=== PATIENT | female | born 1940 | race Caucasian/White ===

== ENCOUNTER 2019-10-18 14:44 | Outpatient (CLI) | payer OTHER, SELFPAY ==
--- NOTE | 2019-10-18 15:00 | CT_ITS ---
WS: [id number] CT CERVICAL SPINE TECHNIQUE: Noncontrast CT of the cervical spine with coronal and sagittal reformatted images. CLINICAL INFORMATION: Cervical spine pain COMPARISON: None. DLP: 557.[address] scans at [facility] use at least one of these dose optimization techniques: automat ed exposure control; mA and/or kV adjustment per patient size (includes targeted exams where dose is matched to clinical indication); or iterative reconstruction. FINDINGS: Straightening of the normal cervical lordosis with moderate spondylitic changes. Disc space narrowing worse at C5-C6 and C6-C7 with osteophytic ridging. Normal prevertebral soft tissues. Normal C1-2 art iculation. C2-C3: Normal. C3-C4: Disc osteophyte complex with endplate ridging. Moderate to severe right and mild left bony for aminal narrowing. Advanced right facet arthropathy. C4-C5: Disc osteophyte complex with endplate ridging. Moderate to severe right and moderate left bony foraminal narrowing. Mild Central canal stenosis. Advanced left facet arthropathy. C5-C6: Disc osteophyte complex with endplate ridging. Severe right and moderate left bony foraminal n arrowing. Mild central canal stenosis. Moderate facet arthropathy. C6-C7: Disc osteophyte complex eccentric to the right with severe right foraminal narrowing. Moderate left bony foraminal narrowing. Spinal canal is patent. C7-T1: No significant disc bulging. Spinal canal and foramen are patent. Visualized posterior nasopharynx: Normal. Prevertebral soft tissues: Normal. CT/CT cervical spin wo con* [id number] IMPRESSION: 1. Straightening of the normal cervical lordosis with moderate spondylitic yu nges. 2. Mild central canal stenosis C5-C6 and C6-C7 due to disc osteophyte complexe s. 3. Multilevel moderate to severe bony foraminal narrowing worse at right C3-C4 , bilateral C4-C5, right C5-C6, and right C6-C7.
--- NOTE | 2019-10-18 15:30 | XR_ITS ---
WS: [id number] XR cervical spine fl/ex [id number] REASON FOR EXAM: Cervical spine pain FINDINGS: There is degenerate changes of the C5 and C6 joint space and vertebral body. There is normal flexion-extension changes noted. XR/XR cervical spine fl/ex [id number] IMPRESSION: Normal flexion-extension. Degenerate changes C5-C6.
== END 2019-10-18 14:45 | disposition home or self-care (01) ==
PROVIDERS: Family Provider Nurse Practitioner Family; PCP Family Medicine; Visit Provider Licensed Practical Nurse
DX: M50.020 Cervical disc disorder with myelopathy, mid-cervical region, unspecified level (principal); M47.892 Other spondylosis, cervical region; M48.02 Spinal stenosis, cervical region
CPT/HCPCS: 72040; 72125

== ENCOUNTER → 2020-12-22 10:03 | Outpatient (BNVA) | payer MEDICARE, MEDICAID, SELFPAY | PROVIDERS: Family Provider Nurse Practitioner Family; PCP Family Medicine; Referring Provider Dermatology; Visit Provider Podiatrist Foot & Ankle Surgery | DX: M84.475A Pathological fracture, left foot, initial encounter for fracture (principal); M20.12 Hallux valgus (acquired), left foot; M19.072 Primary osteoarthritis, left ankle and foot; M79.672 Pain in left foot | CPT/HCPCS: 73630; 87070; 87075; 87077; 87186; 87205 ==

== ENCOUNTER → 2021-03-26 09:30 | Outpatient (BNVA) | payer MEDICARE, MEDICAID, SELFPAY | PROVIDERS: Family Provider Nurse Practitioner Family; PCP Family Medicine; Visit Provider Podiatrist Foot & Ankle Surgery | DX: S91.302A Unspecified open wound, left foot, initial encounter (principal); L97.522 Non-pressure chronic ulcer of other part of left foot with fat layer exposed; X58.XXXA Exposure to other specified factors, initial encounter; Z46.89 Encounter for fitting and adjustment of other specified devices | CPT/HCPCS: 73630; 97760; L4361 ==

== ENCOUNTER 2021-03-26 14:06 | Outpatient (CLI) | payer MEDICARE, MEDICAID, SELFPAY | END 2021-03-26 14:07 | disposition home or self-care (01) | LOC: SPT 14:07 | PROVIDERS: Family Provider Nurse Practitioner Family; PCP Family Medicine; Visit Provider Podiatrist Foot & Ankle Surgery | DX: Z46.89 Encounter for fitting and adjustment of other specified devices (principal); L97.522 Non-pressure chronic ulcer of other part of left foot with fat layer exposed | CPT/HCPCS: 97760; L4361 ==

== ENCOUNTER → 2021-04-03 13:29 | Outpatient (BNVA) | payer MEDICARE, MEDICAID, SELFPAY | PROVIDERS: Family Provider Nurse Practitioner Family; PCP Family Medicine; Visit Provider Podiatrist Foot & Ankle Surgery | DX: M79.672 Pain in left foot (principal) | CPT/HCPCS: 73630 ==

== ENCOUNTER → 2021-06-01 09:26 | Outpatient (BNVA) | payer MEDICARE, MEDICAID, SELFPAY | PROVIDERS: Family Provider Nurse Practitioner Family; PCP Family Medicine; Visit Provider Podiatrist Foot & Ankle Surgery | DX: Z01.818 Encounter for other preprocedural examination (principal); E11.42 Type 2 diabetes mellitus with diabetic polyneuropathy; L97.522 Non-pressure chronic ulcer of other part of left foot with fat layer exposed; T84.84XA Pain due to internal orthopedic prosthetic devices, implants and grafts, initial encounter; M20.22 Hallux rigidus, left foot; Z79.4 Long term (current) use of insulin | CPT/HCPCS: 87635 ==

== ENCOUNTER 2021-06-05 07:03 | Day surgery (SDC) | payer MEDICARE, MEDICAID, SELFPAY ==
[2021-06-04 09:09] VITALS: BMI 34.4
[2021-06-05] VITALS (8 sets, daily range): BP systolic 114–163; BP diastolic 61–87; PULSE 75–81; RESP 13–20; TEMP 36.5–36.8; O2SAT 90–96
[2021-06-05 07:41] LABS: Glucose Point of Care 240 mg/dL (70-110)
[2021-06-05] MEDS: sodium chloride 0.9% 1,000 ML 30 ML IV (07:47)
[2021-06-05] MEDS: insulin regular-human 100 units/1 mL 10 UNIT IVP (08:09)
--- NOTE | 2021-06-05 08:13 | SUR.PREOP ---
patient blood sugar 240. Dr. wheat informed and orders for 10 regular insulin and recheck blood sugar in an hour if still in outpatient.
--- NOTE | 2021-06-05 08:28 | W.PM.OPSUD ---
Surgery/Procedure H&P Update DATE OF PROCEDURE: June 05, 2021 DATE H&P PERFORMED: 06/01/21 H&P UPDATE INFORMATION: I have reviewed H&P completed within last 30 days, I have examined patient prior to procedure, No changes to prior documentation and H&P is in [facility] EMR on date indicated PREOP DIAGNOSIS: Painful hardware and chronic ulcer left foot PLANNED PROCEDURE: Operation Date: 06/05/21 08:50 Proposed Procedures p 80793 and [id number] Osteotomy proximal phalanx and deep hardware removal of left great toe L97.522 T84.84X(Left) - Luis Lucero DPM s Hardware Removal(Left) - Luis Lucero DPM
--- NOTE | 2021-06-05 08:35 | ANES.PREANE2 ---
Pre-Anesthetic Assessment Pre-Anesthetic Assessment: Height/Weight: Height 1.65 m Weight 93.894 kg Temp Pulse Resp BP Pulse Ox 97.8 F 81 18 163/87 93 06/05/21 07:34 06/05/21 07:34 06/05/21 07:34 06/05/21 07:34 06/05/21 07:34 Preop Diagnosis: Painful hardware and chronic ulcer left foot Proposed Procedure: Operation Date: 06/05/21 08:50 Proposed Procedures p 72120 and 00268 Osteotomy proximal phalanx and deep hardware removal of left great toe L97.522 T84.84X(Left) - Luis Lucero DPM s Hardware Removal(Left) - Luis Lucero DPM Was Beta Aleah taken within 24 hours: Yes Was Clonidine taken within 24 hours: N/A Last intake: Intake Last Liquid Date 06/04/21 Last Liquid Time 23:00 Last Solid Date 06/04/21 Last Solid Time 23:00 Social: Social History: No alcohol and No tobacco Exam: Pre-Anes Outpt Exam: alert, oriented x 3, clear to auscultation bilaterally and regular rate & rhythm Airway: Submandibular: WNL Cervical ROM: WNL MP: 2 Dentition: Full CV/HEM: CV/HEM: HTN GI: GI: GERD Metabolic: Metabolic: Hyperlipidemia and Morbid obesity Musc/skel: Musc/skel: Lower Back Pain and OA/DJD Anesthetic Plan: ASA status: 3 Risk of > 500 ml blood loss (7ml/kg in children): No Meds/Allergies Current Medications: Current Medications Generic Name Dose Route Start Last Admin Trade Name Freq PRN Reason Stop Dose Admin Sodium Chloride 1,000 mls @ 30 ml s/hr 06/05/21 07:30 06/05/21 07:47 Sodium Chloride 0.9% IV 06/06/21 07:29 30 mls/hr .Q24H VIKKI Administration PFSH Anesthesia PFSH: Medical History 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 Type 2 diabetes mellitus Surgical History History of cholecystectomy (~1960) removal of appendix and gall bladder History of foot surgery 1989 History of hysterectomy (1973) Family History Mother Hypertension Brother Hypertension Heart disease Cancer Grandmother Cancer Social History Alcohol intake: never Lives independently: No Housing: Assisted Living Facility Marital status: service: Yes branch: [employer] Current occupational status: retired and disabled History of recent travel: No Data Anesthesia Other Labs: Laboratory Results - last 48 hr 06/05/21 07:37 POC Glucose 240 H Cardiac Studies: No Data to Display
--- NOTE | 2021-06-05 09:38 | XR_ITS ---
WS: [id number] XR foot LT min 3V* [id number] REASON FOR EXAM: post op FINDINGS: Compared to the previous examination of 04/03/2021, the arthrodesis DIP joint screw in the great toe is been removed. There is fusion of the distal and proximal phalanx. Interval amputation of the phalanges of the fourth and fifth toes. Significant subluxation at the MP joint of the third toe. 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 The hindfoot and midfoot are unchanged. XR/XR foot LT min 3V* [id number] IMPRESSION: Postoperative left foot.
--- NOTE | 2021-06-05 09:45 | P.OP_ITS ---
Operative Report Date of procedure: June 05, 2021 Pre-op Diagnosis: Painful hardware and chronic ulcer left foot Post-op diagnosis: same Post-op Findings: None Procedure Done: Osteotomy proximal phalanx and deep hardware removal of left great toe. CPT 17249 and 25255 Implants: 4-0 Vicryl 4-0 nylon Specimens removed/disposition: Screw removed from left great toe Pathology: none sent Surgeon: Luis Lucero D.P.M. Branch Administrator: Phyllis Anesthesia: MAC Estimated blood loss: 5 Tourniquet time: See operative documentation IV fluids: 0 Urine output: 0 Complications: None Findings: None Condition: stable Disposition: PACU Brief History: Ulceration to the left plantar medial hallux at the interphalangeal joint. Patient initially requesting amputation, I proposed hard lion removal and arthroplasty/osteotomy of the first toe of proximal phalanx as a means of offloading patient is agreeable would like to proceed with this understanding that should result in infection or fail and offloading that down the road her toe could potentially be amputated. She is okay with this. Risks include pain, bleeding, numbness, infection, failure to remove hardware, osteomyelitis, need for further surgical intervention. Transfer pressure, transfer lesion and possible risk for amputation. Patient is agreeable wishes to proceed. Covid screening negative. Has been n.p.o. since midnight. Informed consent signed and I initialed her left foot. No guarantees written, expressed or implied. Procedure: Under mild sedation the patient was brought to the operating room and remained on the gurney in supine position. A timeout was performed. Anesthesia was then administered by the anesthesia service. Local anesthesia injected by myself total of 20 cc of one-to-one mixture 1% lidocaine 0.5% Marcaine plain left in a Prince block fashion. Well-padded pneumatic tourniquet applied to the left ankle. Left lower extremity was scrubbed, prepped and draped utilizing normal aseptic technique. Left foot was elevated and tourniquet inflated to 250 mmHg. Incision was made transversely at the distal tuft of the left hallux and screw head was identified this was backed out and removed and passed from the operative field. Incision was flushed with saline solution at the distal hallux and closed with 4-0 nylon. Linear incision at the dorsal aspect of the left hallux was performed with dissection carried down to the level of the hallux interphalangeal joint where a transverse osteotomy was performed at the proximal phalanx head this was excised and passed in the operative field and flushed with saline solution closed in a layered fashion with deep structures closed with 4-0 Vicryl and skin closed with 4-0 nylon. Incision was then dressed with Adaptic, sterile 4 x 4, Kerlix, Prakash wrap and a postop shoe was applied. Tourniquet was deflated and a prompt hyperemic response was noted to the distal digits of the left foot. Patient tolerated the procedure well and was transferred to the PACU with vital signs stable and vascular status intact. Following a period of postoperative monitoring she will be discharged home. Has follow-up scheduled in podiatry clinic next week.
[2021-06-05 10:05] LABS: Glucose Point of Care 172 mg/dL (70-110)
--- NOTE | 2021-06-05 13:17 | ANE.PACU2 ---
Inpatient post-anesthesia follow up: Airway intact: Yes Vital signs: Temperature 97.7 F Pulse Rate 76 Respiratory Rate 18 Blood Pressure 135/75 Pulse Oximetry 95 Oxygen Delivery Me thod Room Air Oxygen Flow Rate Fraction of Inspir ed Oxygen Hydration adequate: Yes Nausea and vomiting: No Pain level: 2 Mental status: Baseline
== END 2021-06-05 13:10 | disposition home or self-care (01) ==
PROVIDERS: PCP Family Medicine; Visit Provider Podiatrist Foot & Ankle Surgery
PROC: (CPT 28308; principal; 2021-06-05 08:45)
PROC: (CPT 20680; 2021-06-05 08:45)
DX: T84.84XA Pain due to internal orthopedic prosthetic devices, implants and grafts, initial encounter (principal); L97.522 Non-pressure chronic ulcer of other part of left foot with fat layer exposed; E11.621 Type 2 diabetes mellitus with foot ulcer; I10 Essential (primary) hypertension; K21.9 Gastro-esophageal reflux disease without esophagitis; E78.5 Hyperlipidemia, unspecified; E66.01 Morbid (severe) obesity due to excess calories; Z68.34 Body mass index [BMI] 34.0-34.9, adult; Z82.49 Family history of ischemic heart disease and other diseases of the circulatory system; Z83.3 Family history of diabetes mellitus
CPT/HCPCS: 20680; 28310; 36416; 73630; 82962; 96374; J0690; J1815; J2704; J3010; J3490; J7030

== ENCOUNTER → 2021-06-24 13:55 | Outpatient (BNVA) | payer MEDICARE, MEDICAID, SELFPAY | PROVIDERS: PCP Family Medicine; Referring Provider Nurse Practitioner Family; Visit Provider Internal Medicine | DX: E11.40 Type 2 diabetes mellitus with diabetic neuropathy, unspecified (principal); E11.649 Type 2 diabetes mellitus with hypoglycemia without coma; Z79.4 Long term (current) use of insulin | CPT/HCPCS: 99204 ==

== ENCOUNTER → 2021-07-20 09:18 | Outpatient (BNVA) | payer MEDICARE, MEDICAID, SELFPAY | PROVIDERS: PCP Family Medicine; Visit Provider Podiatrist Foot & Ankle Surgery | DX: Z98.890 Other specified postprocedural states (principal) | CPT/HCPCS: 73630 ==

== ENCOUNTER → 2021-07-28 11:21 | Outpatient (BNVA) | payer MEDICARE, MEDICAID, SELFPAY | PROVIDERS: PCP Family Medicine; Visit Provider Internal Medicine | DX: E11.40 Type 2 diabetes mellitus with diabetic neuropathy, unspecified (principal); E11.649 Type 2 diabetes mellitus with hypoglycemia without coma; Z79.4 Long term (current) use of insulin | CPT/HCPCS: 99214 ==

== ENCOUNTER → 2021-10-28 10:39 | Outpatient (BNVA) | payer MEDICARE, MEDICAID, SELFPAY | PROVIDERS: PCP Family Medicine; Visit Provider Internal Medicine | DX: E11.40 Type 2 diabetes mellitus with diabetic neuropathy, unspecified (principal); E11.649 Type 2 diabetes mellitus with hypoglycemia without coma | CPT/HCPCS: 99214 ==

== ENCOUNTER → 2021-12-14 13:07 | Outpatient (BNVA) | payer MEDICARE, MEDICAID, SELFPAY | PROVIDERS: PCP Family Medicine; Visit Provider Podiatrist Foot & Ankle Surgery | DX: E11.42 Type 2 diabetes mellitus with diabetic polyneuropathy (principal); M72.2 Plantar fascial fibromatosis; I73.9 Peripheral vascular disease, unspecified | CPT/HCPCS: 99213 ==

== ENCOUNTER → 2022-02-18 13:22 | Outpatient (BNVA) | payer MEDICARE, MEDICAID, SELFPAY | PROVIDERS: PCP Family Medicine; Visit Provider Internal Medicine | DX: E11.40 Type 2 diabetes mellitus with diabetic neuropathy, unspecified (principal); E11.69 Type 2 diabetes mellitus with other specified complication; R68.89 Other general symptoms and signs; E78.2 Mixed hyperlipidemia; Z79.4 Long term (current) use of insulin; Z79.84 Long term (current) use of oral hypoglycemic drugs | CPT/HCPCS: 99214 ==

== ENCOUNTER → 2022-05-31 08:14 | Outpatient (BNVA) | payer MEDICARE, MEDICAID, SELFPAY | PROVIDERS: PCP Family Medicine; Visit Provider Internal Medicine | DX: E11.40 Type 2 diabetes mellitus with diabetic neuropathy, unspecified (principal); E11.69 Type 2 diabetes mellitus with other specified complication; R68.89 Other general symptoms and signs; E78.2 Mixed hyperlipidemia; Z87.891 Personal history of nicotine dependence; Z79.84 Long term (current) use of oral hypoglycemic drugs; Z79.4 Long term (current) use of insulin | CPT/HCPCS: 99214 ==

== ENCOUNTER → 2022-06-08 09:15 | Outpatient (BNVA) | payer OTHER, SELFPAY | PROVIDERS: PCP Family Medicine; Visit Provider Podiatrist Foot & Ankle Surgery | DX: E11.8 Type 2 diabetes mellitus with unspecified complications (principal); E11.40 Type 2 diabetes mellitus with diabetic neuropathy, unspecified; R68.89 Other general symptoms and signs; E11.69 Type 2 diabetes mellitus with other specified complication; E78.2 Mixed hyperlipidemia; Z79.4 Long term (current) use of insulin | CPT/HCPCS: 99214 ==

== ENCOUNTER → 2022-11-30 10:30 | Outpatient (BNVA) | payer MEDICARE, MEDICAID, SELFPAY | PROVIDERS: PCP Family Medicine; Visit Provider Internal Medicine | DX: E11.40 Type 2 diabetes mellitus with diabetic neuropathy, unspecified (principal); E11.69 Type 2 diabetes mellitus with other specified complication; R68.89 Other general symptoms and signs; E78.2 Mixed hyperlipidemia; Z79.4 Long term (current) use of insulin; Z79.84 Long term (current) use of oral hypoglycemic drugs | CPT/HCPCS: 99214 ==

== ENCOUNTER → 2022-12-07 09:06 | Outpatient (BNVA) | payer MEDICARE, MEDICAID, SELFPAY | PROVIDERS: PCP Family Medicine; Visit Provider Podiatrist Foot & Ankle Surgery | DX: E11.621 Type 2 diabetes mellitus with foot ulcer (principal); Z79.4 Long term (current) use of insulin; L97.521 Non-pressure chronic ulcer of other part of left foot limited to breakdown of skin; E11.40 Type 2 diabetes mellitus with diabetic neuropathy, unspecified; R68.89 Other general symptoms and signs; E11.69 Type 2 diabetes mellitus with other specified complication; E78.2 Mixed hyperlipidemia; I73.9 Peripheral vascular disease, unspecified | CPT/HCPCS: 99214 ==

== ENCOUNTER → 2023-03-03 13:04 | Outpatient (BNVA) | payer MEDICARE, MEDICAID, SELFPAY | PROVIDERS: PCP Family Medicine; Visit Provider Podiatrist Foot & Ankle Surgery | DX: E11.621 Type 2 diabetes mellitus with foot ulcer (principal); L97.521 Non-pressure chronic ulcer of other part of left foot limited to breakdown of skin; I73.9 Peripheral vascular disease, unspecified; E78.2 Mixed hyperlipidemia; E11.69 Type 2 diabetes mellitus with other specified complication; R68.89 Other general symptoms and signs; E11.40 Type 2 diabetes mellitus with diabetic neuropathy, unspecified; Z79.4 Long term (current) use of insulin | CPT/HCPCS: 99213 ==

== ENCOUNTER → 2023-03-18 10:45 | Outpatient (BNVA) | payer MEDICARE, MEDICAID, SELFPAY | PROVIDERS: PCP Family Medicine; Visit Provider Podiatrist Foot & Ankle Surgery | DX: E11.621 Type 2 diabetes mellitus with foot ulcer (principal); L97.521 Non-pressure chronic ulcer of other part of left foot limited to breakdown of skin; E11.40 Type 2 diabetes mellitus with diabetic neuropathy, unspecified; R68.89 Other general symptoms and signs; E11.69 Type 2 diabetes mellitus with other specified complication; E78.2 Mixed hyperlipidemia; I73.9 Peripheral vascular disease, unspecified; Z79.4 Long term (current) use of insulin | CPT/HCPCS: 73630; 99213 ==

== ENCOUNTER → 2023-04-27 15:51 | Outpatient (BNVA) | payer MEDICARE, MEDICAID, SELFPAY | PROVIDERS: PCP Family Medicine; Visit Provider Nurse Practitioner Family | DX: L97.521 Non-pressure chronic ulcer of other part of left foot limited to breakdown of skin (principal); Z51.89 Encounter for other specified aftercare | CPT/HCPCS: 87070; 87077; 87186 ==

== ENCOUNTER → 2023-05-31 11:12 | Outpatient (BNVA) | payer MEDICARE, MEDICAID, SELFPAY | PROVIDERS: PCP Family Medicine; Visit Provider Internal Medicine | DX: E11.40 Type 2 diabetes mellitus with diabetic neuropathy, unspecified (principal); R68.89 Other general symptoms and signs; E11.69 Type 2 diabetes mellitus with other specified complication; E78.2 Mixed hyperlipidemia; Z79.84 Long term (current) use of oral hypoglycemic drugs | CPT/HCPCS: 99214 ==

== ENCOUNTER → 2023-06-07 10:50 | Outpatient (BNVA) | payer MEDICARE, MEDICAID, SELFPAY | PROVIDERS: Visit Provider Podiatrist Foot & Ankle Surgery | DX: E11.40 Type 2 diabetes mellitus with diabetic neuropathy, unspecified (principal); E11.69 Type 2 diabetes mellitus with other specified complication; I73.9 Peripheral vascular disease, unspecified; M20.41 Other hammer toe(s) (acquired), right foot; M20.42 Other hammer toe(s) (acquired), left foot; M21.41 Flat foot [pes planus] (acquired), right foot; M21.42 Flat foot [pes planus] (acquired), left foot; M21.611 Bunion of right foot; M21.612 Bunion of left foot; Z79.4 Long term (current) use of insulin; Z79.84 Long term (current) use of oral hypoglycemic drugs | CPT/HCPCS: 99213 ==

== ENCOUNTER → 2023-10-04 09:55 | Outpatient (BNVA) | payer OTHER, SELFPAY | PROVIDERS: Visit Provider Podiatrist Foot & Ankle Surgery | DX: E11.8 Type 2 diabetes mellitus with unspecified complications (principal); E11.40 Type 2 diabetes mellitus with diabetic neuropathy, unspecified; I73.9 Peripheral vascular disease, unspecified; M20.41 Other hammer toe(s) (acquired), right foot; M20.42 Other hammer toe(s) (acquired), left foot; M21.41 Flat foot [pes planus] (acquired), right foot; M21.42 Flat foot [pes planus] (acquired), left foot; M21.611 Bunion of right foot; M21.612 Bunion of left foot; Z79.85 Long-term (current) use of injectable non-insulin antidiabetic drugs; Z79.84 Long term (current) use of oral hypoglycemic drugs | CPT/HCPCS: 99213 ==

== ENCOUNTER → 2023-11-30 09:51 | Outpatient (BNVA) | payer MEDICARE, MEDICAID, OTHER, SELFPAY | PROVIDERS: Visit Provider Internal Medicine | DX: E11.40 Type 2 diabetes mellitus with diabetic neuropathy, unspecified (principal); R68.89 Other general symptoms and signs; E11.69 Type 2 diabetes mellitus with other specified complication; E78.2 Mixed hyperlipidemia; Z79.4 Long term (current) use of insulin; Z79.84 Long term (current) use of oral hypoglycemic drugs | CPT/HCPCS: 99214 ==

== ENCOUNTER → 2024-01-10 12:52 | Outpatient (BNVA) | payer MEDICARE, MEDICAID, SELFPAY | PROVIDERS: Visit Provider Podiatrist Foot & Ankle Surgery | DX: E11.8 Type 2 diabetes mellitus with unspecified complications (principal); E11.40 Type 2 diabetes mellitus with diabetic neuropathy, unspecified; I73.9 Peripheral vascular disease, unspecified; M20.41 Other hammer toe(s) (acquired), right foot; M20.42 Other hammer toe(s) (acquired), left foot; M21.41 Flat foot [pes planus] (acquired), right foot; M21.42 Flat foot [pes planus] (acquired), left foot; M21.611 Bunion of right foot; M21.612 Bunion of left foot; Z79.4 Long term (current) use of insulin; Z79.84 Long term (current) use of oral hypoglycemic drugs | CPT/HCPCS: 99213 ==

== ENCOUNTER → 2024-04-10 10:17 | Outpatient (BNVA) | payer MEDICARE, MEDICAID, SELFPAY | PROVIDERS: PCP Nurse Practitioner; Referring Provider Family Medicine; Visit Provider Podiatrist Foot & Ankle Surgery | DX: E11.8 Type 2 diabetes mellitus with unspecified complications (principal); E11.40 Type 2 diabetes mellitus with diabetic neuropathy, unspecified; I73.9 Peripheral vascular disease, unspecified; M20.41 Other hammer toe(s) (acquired), right foot; M20.42 Other hammer toe(s) (acquired), left foot; M21.41 Flat foot [pes planus] (acquired), right foot; M21.42 Flat foot [pes planus] (acquired), left foot; Z79.84 Long term (current) use of oral hypoglycemic drugs | CPT/HCPCS: 99213 ==

== ENCOUNTER → 2024-05-30 09:57 | Outpatient (BNVA) | payer OTHER, SELFPAY | PROVIDERS: PCP Nurse Practitioner; Visit Provider Internal Medicine | DX: E11.40 Type 2 diabetes mellitus with diabetic neuropathy, unspecified (principal); R68.89 Other general symptoms and signs; E11.69 Type 2 diabetes mellitus with other specified complication; E78.2 Mixed hyperlipidemia; Z79.4 Long term (current) use of insulin; Z79.84 Long term (current) use of oral hypoglycemic drugs | CPT/HCPCS: 99214 ==

== ENCOUNTER → 2024-06-19 13:00 | Outpatient (BNVA) | payer OTHER, SELFPAY | PROVIDERS: PCP Nurse Practitioner; Visit Provider Podiatrist Foot & Ankle Surgery | DX: E11.40 Type 2 diabetes mellitus with diabetic neuropathy, unspecified; I73.9 Peripheral vascular disease, unspecified; L84 Corns and callosities; L97.522 Non-pressure chronic ulcer of other part of left foot with fat layer exposed; E11.621 Type 2 diabetes mellitus with foot ulcer; Z79.4 Long term (current) use of insulin; Z79.84 Long term (current) use of oral hypoglycemic drugs | CPT/HCPCS: 11042; 11055; 87070; 87075; 87077; 87186; 87205 ==

== ENCOUNTER → 2024-07-10 08:45 | Outpatient (BNVA) | payer OTHER, SELFPAY | PROVIDERS: PCP Nurse Practitioner; Visit Provider Podiatrist Foot & Ankle Surgery | DX: E11.40 Type 2 diabetes mellitus with diabetic neuropathy, unspecified (principal); I73.9 Peripheral vascular disease, unspecified; L84 Corns and callosities; L97.522 Non-pressure chronic ulcer of other part of left foot with fat layer exposed; E11.621 Type 2 diabetes mellitus with foot ulcer; Z79.84 Long term (current) use of oral hypoglycemic drugs; Z79.4 Long term (current) use of insulin | CPT/HCPCS: 11042 ==

== ENCOUNTER 2024-07-16 19:54 | Emergency (ER) | payer OTHER, MEDICARE, MEDICAID, SELFPAY ==
[2024-07-16] VITALS (7 sets, daily range): BP systolic 170–182; BP diastolic 78–101; PULSE 78–95; RESP 16–18; TEMP 36.7; O2SAT 90–96; BMI 33.3
--- NOTE | 2024-07-16 20:01 | CTR_ITS ---
PROCEDURE INFORMATION: Exam: CT Head Without Contrast Exam date and time: 07/16/2024 8:48 PM Age: 83 years old Clinical indication: Altered mental status/memory loss; Additional info: Encephalopathy, altered mental status TECHNIQUE: Imaging protocol: Computed tomography of the head without contrast. Radiation optimization: All CT scans at this facility use at least one of these dose optimization techniques: automated exposure control; mA and/or kV adjustment per patient size (includes targeted exams where dose is matched to clinical indication); or iterative reconstruction. COMPARISON: CT cervical spin wo con* [id number] 10/18/2019 3:48 PM RADIATION DOSE METRICS: Total DLP (mGy-cm): 1108.28 FINDINGS: Brain: Age-related brain parenchymal atrophy. Areas of hypoattenuation in the periventricular and subcortical deep white matter likely on the basis of chronic microvascular ischemic changes. No acute intra cranial hemorrhage. No mass effect or midline shift. No definitive CT evidence of acute territorial infarction. Cerebral ventricles: Prominence of the lateral ventricular system likely on the basis of ex vacuo dilatation. Paranasal sinuses: Visualized sinuses are unremarkable. No fluid levels. Mastoid air cells: Visualized mastoid air cells are well aerated. Bones: Intact calvarium. . Soft tissues: Unremarkable. CT/CT head wo con* [id number] IMPRESSION: No acute intracranial process.
--- NOTE | 2024-07-16 20:02 | XRR_ITS ---
PROCEDURE INFORMATION: Exam: XR Chest Exam date and time: 07/16/2024 8:26 PM Age: 83 years old Clinical indication: Other: [place], AMS; Additional info: Weakness TECHNIQUE: Imaging protocol: Radiologic exam of the chest. Views: 1 view. COMPARISON: CT cervical spin wo con* [id number] 10/18/2019 3:48 PM FINDINGS: Lungs: Unremarkable. No consolidation. Pleural spaces: Unremarkable. No pleural effusion. No pneumothorax. Heart/Mediastinum: Unremarkable. No cardiomegaly. Bones/joints: Unremarkable. XR/XR chest 1V portable [id number] IMPRESSION: No acute findings.
[2024-07-16 20:27] LABS: Basophils # 0.2 10^3/uL (0.0-0.1); Basophils % 1.5 %; Eosinophils # 0.4 10^3/uL (0.0-0.8); Eosinophils % 4.3 %; Hematocrit 38.1 % (36-47); Lymphocytes # 2.3 10^3/uL (0.8-4.8); Lymphocytes % 22.7 %; Mean Corpuscular HGB Conc 30.7 g/dL (30-55); Mean Corpuscular Hemoglobin 27.5 pg (27-33); Mean Corpuscular Volume 89.6 fl (85-98); Mean Platelet Volume 10.5 fL (7.4-10.4); Monocytes # 0.7 10^3/uL (0.2-0.9); Monocytes % 6.5 %; Neutrophils # 6.65 10^3/uL (1.8-7.7); Neutrophils % 64.6 %; Nucleated Red Blood Cells % 0 %; Platelet Count 477 10^3/cmm (157-399); Red Blood Count 4.25 10^6/uL (3.85-5.65); Red Cell Distribution Width 13.6 % (12.1-15.1); White Blood Count 10.29 10^3/uL (3.29-11.43)
[2024-07-16 20:44] LABS: Troponin(5th) Baseline 21 ng/L (0-10)
[2024-07-16 20:45] LABS: Alanine Aminotransferase 9 U/L (0-33); Albumin Level 4.1 g/dL (3.5-5.2); Alkaline Phosphatase 53 U/L (35-105); Anion Gap 15.2 (5-19); Aspartate Amino Transferase 14 U/L (0-32); Blood Urea Nitrogen 34 mg/dL (8-23); Calcium 9.5 mg/dL (8.5-10.5); Carbon Dioxide 28 mmol/L (22-29); Chloride 100 mmol/L (98-107); Creatinine Clr Calc Pharmacy 35.2059; Globulin 2.6 g/dL (1.3-4.6); Glucose 191 mg/dL (65-115); Osmolality Calculated 299 mOsm/kg (285-295); Potassium 5.2 mmol/L (3.5-5.1); Sodium 138 mmol/L (136-145); Total Bilirubin 0.2 mg/dL (0.15-1.2); Total Protein 6.7 g/dL (6.6-8.7)
[2024-07-16 20:46] LABS: Lactic Sepsis W/Reflex 0.7 mmol/L (0.5-2.2)
[2024-07-16 20:47] LABS: Bilirubin Urine Negative (Negative); Blood Urine Negative (Negative); Glucose Urine UA Negative (Normal); Ketones Urine Negative (Negative); Leukocyte Esterase Urine Negative (Negative); Nitrate Urine Negative (Negative); Protein Urine 1+ (Negative); Specific Gravity, Urine 1.009 (1.005-1.030); Urine Appearance Clear (CLEAR); Urine Color Yellow (Yellow); Urobilinogen Urine 0.2 mg/dL (Negative)
[2024-07-16 20:51] LABS: Bacteria Urine None Seen /hpf; RBC Urine 0-2 /hpf (0-2); Squamous Epithelial Cell Urine 0-5 /hpf (0-5); WBC Urine 0-5 /hpf (0-5)
--- NOTE | 2024-07-16 20:54 | ED_ITS ---
HPI - Headache 2 General: Chief Complaint: Headache Stated Complaint: AMS Time Seen by Provider: 07/16/24 20:01 History of Present Illness: 83-year-old who presents to the emergenc y room by ambulance from [facility] with headache and tripping over her feet recently. She is low bit hypertensive on presentation. No focal motor deficits. No altered mental status. No chest pain. No nausea or vomiting. No fevers Related Data Home Medications Medication Instructions Recorded Confirmed amlodipine 10 mg tablet 10 mg PO QNOON 10/05/19 07/10/24 carvedilol 25 mg tablet 25 mg PO DAILY 10/05/19 07/10/24 cholecalciferol (vitamin D3) 50 2,000 unit PO QPM 10/05/19 07/10/24 mcg (2,000 unit) tablet cyanocobalamin (vitamin B-12) 1,000 mcg IM .MONTHLY 10/05/19 07/10/24 1,000 mcg/mL injection solution cyclobenzaprine 10 mg tablet 10 mg PO TID PRN muscle spasm 10/05/19 07/10/24 lidocaine 5 % topical cream 1 applic topical BID PRN Pain 10/05/19 07/10/24 lisinopril 40 mg tablet 20 mg PO DAILY 10/05/19 07/10/24 magnesium oxide 400 mg PO DAILY 10/05/19 07/10/24 multivitamin 1 tab PO QNOON 10/05/19 07/10/24 omeprazole 20 mg capsule,delayed 20 mg PO BID 10/05/19 07/10/24 release peg 400-propylene glycol 0.4 %-0.3 1 drop ophthalmic (eye) BID 10/05/19 07/10/24 % eye drops meloxicam 15 mg tablet (Mobic) 15 mg PO DAILY 06/04/21 07/10/24 vitamin B complex 1 caplet PO DAILY 06/04/21 07/10/24 ezetimibe 10 mg tablet 10 mg PO DAILY 06/24/21 07/10/24 atorvastatin 20 mg tablet 40 mg PO QPM 10/28/21 07/10/24 betamethasone dipropionate 0.05 % 1 applic topical BID PRN 04/20/23 07/10/24 topical cream duloxetine 60 mg capsule,delayed 60 mg PO DAILY 04/20/23 07/10/24 release metformin 500 mg tablet 500 mg PO BID 04/20/23 07/10/24 miconazole nitrate 2 % topical 1 applic topical BID 04/20/23 07/10/24 ointment sitagliptin phosphate 100 mg tablet 100 mg PO DAILY 04/20/23 07/10/24 Previous Rx's Medication Instructions Recorded pen needle, diabetic 32 gauge x #300 ea 10/28/21/32 (BD Serena 2nd Gen Pen Needle) insulin degludec 100 unit/mL (3 61 unit (0.61 mL) SUBCUT BID #105 01/04/22 mL) subcutaneous pen (Tresiba mL FlexTouch U-100 insulin) ketoconazole 2 % shampoo 1 applic topical .2x weekly #120 mL 05/27/22 triamcinolone acetonide 0.1 % 1 applic topical BID #80 grams 05/27/22 topical ointment Diabetic Shoes with 3 pairs of #1 ea 06/08/22 inserts and 2 pairs of ROMAN Hose fenofibrate nanocrystallized 145 145 mg PO DAILY 90 days #90 tabs 12/02/22 mg tablet Modifications with shoe gear to #1 ea 03/21/23 stay away from surgery (Offloading) Compression stockings bilaterally #3 ea 02/23/24 Diabetic Shoes with 3 Pairs of #1 ea 02/23/24 Custom Orthotics Allergies Allergy/AdvReac Type Severity Reaction Status Date / Time acetaminophen [From Percocet] Allergy Unknown Verified 07/16/24 20:14 benztropine [From Cogentin] Allergy had Verified 07/16/24 20:14 reaction with other medication, haldol codeine Allergy Unknown Verified 07/16/24 20:14 hydrocodone [From Vicodin] Allergy Unknown Verified 07/16/24 20:14 hydroxyzine [From Vistaril] Allergy Unknown Verified 07/16/24 20:14 levothyroxine sodium Allergy unknown Verified 07/16/24 20:14 [From Synthroid] montelukast [From Singulair] Allergy Unknown Verified 07/16/24 20:14 olanzapine [From Zyprexa] Allergy Unknown Verified 07/16/24 20:14 oxycodone [From Percocet] Allergy Unknown Verified 07/16/24 20:14 quetiapine [From Seroquel] Allergy Unknown Verified 07/16/24 20:14 risperidone [From Risperdal] Allergy Unknown Verified 07/10/24 09:01 topiramate [From Topamax] Allergy Unknown Verified 07/10/24 09:01 eszopiclone [From Lunesta] AdvReac kept awake Verified 07/10/24 09:01 fluoxetine [From Prozac] AdvReac wasn't Verified 07/10/24 09:01 able to eat, nauseated haloperidol [From Haldol] AdvReac confused, Verified 07/10/24 09:01 pt stated made silly Review of Systems 2 Narrative: Constitutional symptoms: Negative except as documented in HPI. Skin symptoms: Negative except as documented in HPI. Eye symptoms: Negative except as documented in HPI. ENMT symptoms: Negative except as documented in HPI. Respiratory symptoms: Negative except as documented in HPI. Cardiovascular symptoms: Negative except as documented in HPI. Gastrointestinal symptoms: Negative except as documented in HPI. Genitourinary symptoms: Negative except as documented in HPI. Musculoskeletal symptoms: Negative except as documented in HPI. Neurologic symptoms: Negative except as documented in HPI. Psychiatric symptoms: Negative except as documented in HPI. Endocrine symptoms: Negative except as documented in HPI. 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 Surgical History History of cholecystectomy (~1960) removal of appendix and gall bladder History of hysterectomy (1973) History of foot surgery 1989 Family History Mother Hypertension Brother Hypertension Heart disease Cancer Grandmother Cancer Social History Smoking and tobacco/nicotine status: never used tobacco/nicotine Alcohol intake: never Substance/Drug Use: never Lives independently: No Housing: Assisted Living Facility Marital status: service: Yes branch: [employer] Current occupational status: retired and disabled Physical Exam 2 Narrative: EXAM NARRATIVE: General: Alert, no acute distress. Skin: Warm, dry. Head: Normocephalic, atraumatic. Neck: Supple, trachea midline. Eye: Extraocular movements are intact. Ears, nose, mouth and throat: mucosa moist. Cardiovascular: Regular, Normal peripheral perfusion. Respiratory: Lungs are clear to auscultation, respirations are non-labored, breath sounds are equal, Symmetrical chest wall expansion. Gastrointestinal: Soft, Nontender, Non distended Musculoskeletal: Normal ROM, no deformity. Neurological: Alert and oriented, No focal neurological deficit observed. Psychiatric: Cooperative, appropriate mood & affect. Course 2 Vital Signs: Vital signs: Vital Signs Temperature 98.0 F 07/16/24 20:01 Pulse Rate 93 07/16/24 20:01 Respiratory Rate 16 07/16/24 20:01 Blood Pressure 173/100 07/16/24 20:01 Pulse Oximetry 90 07/16/24 20:01 Oxygen Delivery Me thod Room Air 07/16/24 20:01 MDM - Headache Medical Decision Making Medical decision making: Differential diagnosis for patient presenting with generalized weakness including but not limited to and based on the above HPI, review of systems and physical exam: Sepsis. Dehydration. Renal failure. Electrolyte abnormalities. Anemia. Congestive heart failure. Hypotension. Coronary syndrome. Hepatitis. Cirrhosis. Infections such as pneumonia, urinary tract infection, [place] illness, Cellulitis, Viral infections including influenza and Covid-19. Workup: labwork and lab/exam driven imaging ordered to evaluate, rule in and rule out above pathologies. CT head: No acute intracranial process. no intracranial hemorrhage, no evidence of infarct. no evidence of acute fracture.This was reviewed and interpreted by myself the ER physician. Chest x-ray: No acute process. No infiltrate. No pneumothorax. This was reviewed and interpreted by myself the emergency room physician. I also reviewed the radiology report. Lab Review: Laboratory results were reviewed and interpreted by myself the emergency room physician. Mild leukocytosis. No anemia. BUN and creatinine are 34 and 1.3. Have no comparison films. Perhaps she is a bit dehydrated so giving some fluids. No other acute findings. No urinary tract infection. I reviewed the patient's medical record. Reexamination: Patient remained stable. No increased work of breathing. No altered mental status. No focal motor deficits. Assessment and plan: Headache Balance issues Generalized weakness - Discharged home - Discussed findings and plan with patient. Answered any questions. - All laboratory values were reviewed and interpreted personally by myself, the ER physician - All imaging was reviewed and interpreted personally by myself, the ER physician. - Evaluation and treatment of this problem were appropriate in the emergency setting Lab Data 07/16/24 20:16 07/16/24 20:[address] 07/16/24 20:01 IMPRESSION: No acute intracranial process. Chest X-Ray 07/16/24 20:02 IMPRESSION: No acute findings. Laboratory Results WBC 10.29 10^3/uL (3.29-11.43) 07/16/24 20:16 RBC 4.25 10^6/uL (3.85-5.65) 07/16/24 20:16 Hgb 11.70 g/dL (11.27-16.99) 07/16/24 20:16 Hct 38.1 % (36-47) 07/16/24 20:16 MCV 89.6 fl (85-98) 07/16/24 20:16 MCH 27.5 pg (27-33) 07/16/24 20:16 MCHC 30.7 g/dL (30-55) 07/16/24 20:16 RDW 13.6 % (12.1-15.1) 07/16/24 20:16 Plt Count 477 10^3/cmm (157-399) H 07/16/24 20:16 MPV 10.5 fL (7.4-10.4) H 07/16/24 20:16 Neut % (Auto) 64.6 % 07/16/24 20:16 Lymph % (Auto) 22.7 % 07/16/24 20:16 [facility] % (Auto) 6.5 % 07/16/24 20:16 Eos % (Auto) 4.3 % 07/16/24 20:16 Baso % (Auto) 1.5 % 07/16/24 20:16 Neut # (Auto) 6.65 10^3/uL (1.8-7.7) 07/16/24 20:16 Lymph # (Auto) 2.3 10^3/uL (0.8-4.8) 07/16/24 20:16 [facility] [place] # (Auto) 0.7 10^3/uL (0.2-0.9) 07/16/24 20:16 Eos # (Auto) 0.4 10^3/uL (0.0-0.8) 07/16/24 20:16 Baso # (Auto) 0.2 10^3/uL (0.0-0.1) H 07/16/24 20:16 Nucleated RBC % (auto) 0 % 07/16/24 20:16 Nucleated RBCs # 0.0 /100WBC 07/16/24 20:16 Sodium 138 mmol/L (136-145) 07/16/24 20:16 Potassium 5.2 mmol/L (3.5-5.1) H 07/16/24 20:16 Chloride 100 mmol/L (98-107) 07/16/24 20:16 Carbon Dioxide 28 mmol/L (22-29) 07/16/24 20:16 Anion Gap 15.2 (5-19) 07/16/24 20:16 BUN 34 mg/dL (8-23) H 07/16/24 20:16 Creatinine 1.3 mg/dL (0.5-0.9) H 07/16/24 20:16 GFR Calculation Not Reportable 07/16/24 20:16 Glucose 191 mg/dL (65-115) H 07/16/24 20:16 Calculated Osmolality 299 mOsm/kg (285-295) H 07/16/24 20:16 Lactic Acid 0.7 mmol/L (0.5-2.2) 07/16/24 20:16 Calcium 9.5 mg/dL (8.5-10.5) 07/16/24 20:16 Total Bilirubin 0.2 mg/dL (0.15-1.2) 07/16/24 20:16 AST 14 U/L (0-32) 07/16/24 20:16 ALT 9 U/L (0-33) 07/16/24 20:16 Alkaline Phosphatase 53 U/L (35-105) 07/16/24 20:16 Troponin T Baseline 21 ng/L (0-10) H 07/16/24 20:16 Total Protein 6.7 g/dL (6.6-8.7) 07/16/24 20:16 Albumin 4.1 g/dL (3.5-5.2) 07/16/24 20:16 Globulin 2.6 g/dL (1.3-4.6) 07/16/24 20:16 Urine Color Yellow (Yellow) 07/16/24 20:30 Urine Appearance Clear (CLEAR) 07/16/24 20:30 Urine pH 8.0 (5-7) A 07/16/24 20:30 Ur Specific [place] 1.009 (1.005-1.030) 07/16/24 20:30 Urine Protein 1+ (Negative) A 07/16/24 20:30 Urine Glucose (UA) Negative (Normal) 07/16/24 20:30 Urine Ketones Negative (Negative) 07/16/24 20: Urine Blood Negative (Negative) 07/16/24 20: Urine Nitrate Negative (Negative) 07/16/24 20: Urine Bilirubin Negative (Negative) 07/16/24 20: Urine Urobilinogen 0.2 mg/dL (Negative) 07/16/24 20: Ur Leukocyte Esterase Negative (Negative) 07/16/24 20:30 Urine RBC 0-2 /hpf (0-2) 07/16/24 20:30 Urine WBC 0-5 /hpf (0-5) 07/16/24 20:30 Ur Squamous Epith Cells 0-5 /hpf (0-5) 07/16/24 20:30 Amorphous Sediment Not Reportable 07/16/24 20:30 Urine Bacteria None seen /hpf (NONE) 07/16/24 20: Hyaline Casts 0.40 /lpf 07/16/24 20:30 All radiology interpretation(s) finalized by discharge Discharge Plan Discharge Patient Disposition: Home Clinical Impression: Headache, Weakness, Dehydration Condition: Stable Prescriptions: No Action amlodipine 10 mg tablet 10 mg PO QNOON carvedilol 25 mg tablet 25 mg PO DAILY cholecalciferol (vitamin D3) 2,000 unit tablet 2,000 unit PO QPM cyanocobalamin (vitamin B-12) 1,000 mcg/mL solution 1,000 mcg IM .MONTHLY cyclobenzaprine 10 mg tablet 10 mg PO TID PRN (Reason: muscle spasm) lidocaine 5 % cream 1 applic TOPICAL BID PRN (Reason: Pain) lisinopril 40 mg tablet 20 mg PO DAILY magnesium oxide 400 mg magnesium capsule 400 mg PO DAILY multivitamin Tablet 1 tab PO QNOON omeprazole 20 mg capsule,delayed release(DR/EC) 20 mg PO BID peg 400-propylene glycol 0.4-0.3 % drops 1 drop ophthalmic (eye) BID ezetimibe 10 mg tablet 10 mg PO DAILY (DME) pen needle, diabetic [BD Serena 2nd Gen Pen Needle] 32 gauge x 5/32 needle See Rx Instructions .Route Qty: 300 3RF Rx Instructions: As directed triamcinolone acetonide 0.1 % ointment 1 applic topical BID Qty: 80 0RF Rx Instructions: Apply to affected areas on trunk no more than 2 weeks per month ketoconazole 2 % shampoo 1 applic topical .2x weekly Qty: 120 6RF Rx Instructions: Lather into scalp 2-3 times weekly. Allow to sit on scalp for 5 minutes before rinsing. lidocaine HCl [Lidocaine Viscous] 2 % solution 1 applic topical ONCE Qty: 1 0RF sitagliptin phosphate 100 mg tablet 100 mg PO DAILY metformin 500 mg tablet 500 mg PO BID duloxetine 60 mg capsule,delayed release(DR/EC) 60 mg PO DAILY betamethasone dipropionate 0.05 % cream 1 applic topical BID PRN miconazole nitrate 2 % ointment 1 applic topical BID lidocaine HCl [Lidocaine Viscous] 2 % solution 1 applic topical ONCE Qty: 1 0RF (DME) Diabetic Shoes with 3 pairs of inserts and 2 pairs of ROMAN Hose See Rx Instructions .Route .MEDSUPPLY Qty: 1 0RF Rx Instructions: As directed by [employer] Tresiba FlexTouch U-100 100 unit/mL (3 mL) insulin pen 61 unit SUBCUT BID Qty: 105 3RF fenofibrate nanocrystallized 145 mg tablet 145 mg PO DAILY 90 Days Qty: 90 0RF (DME) Modifications with shoe gear to stay away from surgery (Offloading) See Rx Instructions .Route .MEDSUPPLY Qty: 1 0RF Rx Instructions: As directed [employer]- A Hole needs to be cut in the seam of shoe where it lines with the Left 4th metatarsal knuckle. (DME) Diabetic Shoes with 3 Pairs of Custom Orthotics See Rx Instructions .Route .MEDSUPPLY Qty: 1 0RF Rx Instructions: As directed (DME) Compression stockings bilaterally See Rx Instructions .Route .MEDSUPPLY Qty: 3 0RF Rx Instructions: As directed by [facility] Measurements are as followed Right ankle 23 cm Right calf 32.5 cm Left ankle 22 cm Left calf-32 cm vitamin B complex 1 caplet PO DAILY Mobic 15 mg Tablet 15 mg PO DAILY atorvastatin 20 mg tablet 40 mg PO QPM Discharge Orders: Discharge ED (Routine); Ordered 07/16/24 Ordered By: Jagruti Leroy Referrals: Linda Bae FNP [Primary Care Provider] - Discharge Diet: Usual diet Discharge Activity: Increase activity as tolerated Patient Instructions: Opioid Safety, Pain Management Activity Restrictions/Additional Instructions: Thank you for choosing [facility] for your healthcare needs today. Please realize this is an emergency room and that we are providing you with a medical screening exam and this may not be complete and all inclusive of all the testing and or work up that you may need to determine your ailment or severity of your illness. You have been screened and evaluated and felt safe for discharge. Health conditions do change or evolve sometimes and as such it is important that you follow up with your Primary Doctor to be re checked, 3-5 days is a general good time frame for follow up. You are always welcome to return to the ED for re assessment if your symptoms are worsening or you have new concerns Coding Level of Care Code ED Four Slide Operator for Brianda Atwood
--- NOTE | 2024-07-16 20:57 | ECG_ITS ---
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 Measurements Intervals [place] Rate: 93 P: 74 NE: 175 QRS: 59 QRSD: 76 T: 75 QT: 343 QTc: 427 Interpretive Statements SINUS RHYTHM POSSIBLE RIGHT VENTRICULAR CONDUCTION DELAY [RSR (QR) IN V1/V2] SEPTAL MYOCARDIAL INFARCTION , OF INDETERMINATE AGE [40+ ms Q WAVE IN V1/V2] No previous ECG available for comparison Electronically Signed On 07-16-2024 21:12:48 MEAT APPRENTICE by Neelima Gutierres M.D. [id number]
[2024-07-16] MEDS: sodium chloride 0.9% 1,000 ML 999 ML IV (22:00)
--- NOTE | 2024-07-16 22:24 | ECG_ITS ---
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 Measurements Intervals [place] Rate: 87 P: 73 NM: 175 QRS: 60 QRSD: 97 T: 83 QT: 351 QTc: 423 Interpretive Statements SINUS RHYTHM SEPTAL MYOCARDIAL INFARCTION , PROBABLY OLD [40+ ms Q WAVE IN V1/V2] Compared to ECG 07/16/2024 20:57:17 No significant changes Electronically Signed On 07-18-2024 18:10:33 SPECIAL DELIVERY CLERK by Neelima Gutierres M.D. [id number]
[2024-07-16] MEDS: hyDRALAzine 20 mg/mL INJ 1 mL 10 MG IVP (22:52)
== END 2024-07-16 23:07 | disposition home or self-care (01) ==
PROVIDERS: Emergency Provider Emergency Medicine; PCP Nurse Practitioner
DX: R51.9 Headache, unspecified (principal); R53.1 Weakness; E86.0 Dehydration; E11.9 Type 2 diabetes mellitus without complications
CPT/HCPCS: 36415; 70450; 71045; 80053; 81001; 83605; 84484; 85025; 87040; 93005; 96374; 99285; J0360; J7030

== ENCOUNTER → 2024-08-06 11:16 | Outpatient (BNVA) | payer OTHER, SELFPAY | PROVIDERS: PCP Nurse Practitioner; Visit Provider Podiatrist Foot & Ankle Surgery | DX: E11.621 Type 2 diabetes mellitus with foot ulcer (principal); L97.522 Non-pressure chronic ulcer of other part of left foot with fat layer exposed; E11.40 Type 2 diabetes mellitus with diabetic neuropathy, unspecified; I73.9 Peripheral vascular disease, unspecified; Z79.4 Long term (current) use of insulin; Z79.84 Long term (current) use of oral hypoglycemic drugs | CPT/HCPCS: 99213 ==

== ENCOUNTER 2024-08-15 14:36 | Inpatient (IN) | payer OTHER, SELFPAY ==
[2024-08-15] VITALS (33 sets, daily range): BP systolic 182–219; BP diastolic 68–137; PULSE 45–96; RESP 14–41; TEMP 36.4–36.8; O2SAT 87–99
--- NOTE | 2024-08-15 14:41 | CT_ITS ---
WS: [id number] CT scan of the head, 08/15/2024 Clinical Data: Symptoms of acute stroke Comparison: CT head, 07/16/2024 DLP: 1155.58 mGy -cm All CT scans at [facility] use at least one of these dose optimization techniques: automated e xposure control; mA and/or kV adjustment per patient size (includes targeted exams where dose is matc hed to clinical indication); or iterative reconstruction. Findings: The ventricular system is moderately dilated without shift. No recent infarct or hemorrhage is seen. There are numerous areas of decreased attenuation probably result of old microvascular ischemia. Ther e are no abnormal intracerebral masses. The cerebellum and brainstem are not remarkable. Bony windows of the skull and skull base show no fractures or erosions. The mastoid air cells, intern retail al auditory canals, sella turcica, intraorbital contents, and paranasal sinuses are unremarkable. CT/CT head thrombolytic [id number] Impression: 1. Negative for hemorrhage or recent infarct. 2. Moderate cerebral atrophy. 3. The report was called to Dr. Tripp in the emergency room at 1450 hours.
--- NOTE | 2024-08-15 14:41 | ECG_ITS ---
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 Measurements Intervals [place] Rate: 85 P: 79 NH: 187 QRS: 59 QRSD: 82 T: 90 QT: 403 QTc: 481 Interpretive Statements SINUS RHYTHM MODERATE ST DEPRESSION [0.05+ mV ST DEPRESSION] Compared to ECG 07/16/2024 22:24:39 ST (T wave) deviation now present Myocardial infarct finding no longer present Electronically Signed On 08-15-2024 21:11:07 ENTRY ANALYST by Neelima Gutierres M.D. [id number]
--- NOTE | 2024-08-15 14:42 | CTR_ITS ---
PROCEDURE INFORMATION: Exam: CTA Head With Contrast, Arteriography Exam date and time: 08/15/2024 2:44 PM Age: 83 years old Clinical indication: Cognitive deficit; Altered mental status; Additional info: AMS TECHNIQUE: Imaging protocol: Computed tomographic angiography of the head with contrast. Exam focused on the arteries. 3D rendering (Not supervised by radiologist): MIP and/or 3D reconstructed images were created by the technologist. Radiation optimization: All CT scans at this facility use at least one of these dose optimization techniques: automated exposure control; mA and/or kV adjustment per patient size (includes targeted exams where dose is matched to clinical indication); or iterative reconstruction. Contrast material: OMNI 350; Contrast volume: 100 ml; Contrast route: INTRAVENOUS (IV); COMPARISON: CT head thrombolytic [id number] 08/15/2024 2:38 PM RADIATION DOSE METRICS: Total DLP (mGy-cm): 448.92 FINDINGS: ANTERIOR CIRCULATION: Right internal carotid artery: Intracranial segment is patent with no significant stenosis. No aneurysm. Right middle cerebral artery: No occlusion or significant stenosis. No aneurysm. Right anterior cerebral artery: No occlusion or significant stenosis. No aneurysm. Left internal carotid artery: Intracranial segment is patent with no significant stenosis. No aneurysm. Left middle cerebral artery: No occlusion or significant stenosis. No aneurysm. Left anterior cerebral artery: Moderate to severe stenosis at the A1 segment just past the origin. No aneurysm. POSTERIOR CIRCULATION: Right vertebral artery: No occlusion or significant stenosis. No aneurysm. Left vertebral artery: No occlusion or significant stenosis. No aneurysm. Basilar artery: No occlusion or significant stenosis. No aneurysm. Right posterior cerebral artery: No occlusion or significant stenosis. No aneurysm. Left posterior cerebral artery: No occlusion or significant stenosis. No aneurysm. Brain: No definite mass, mass effect, or midline shift. Cerebral ventricles: No ventriculomegaly. Bones/joints: Unremarkable. No acute fracture. Soft tissues: Unremarkable. PROCEDURE INFORMATION: Exam: CTA Neck With Contrast Exam date and time: 08/15/2024 2:44 PM Age: 83 years old Clinical indication: Cognitive deficit; Altered mental status; Additional info: AMS TECHNIQUE: Imaging protocol: Computed tomographic angiography of the neck with contrast. Exam focused on the cervical segments of the vasculature. 3D rendering (Not supervised by radiologist): MIP and/or 3D reconstructed images were created by the technologist. Radiation optimization: All CT scans at this facility use at least one of these dose optimization techniques: automated exposure control; mA and/or kV adjustment per patient size (includes targeted exams where dose is matched to clinical indication); or iterative reconstruction. Contrast material: OMNI 350; Contrast volume: 100 ml; Contrast route: INTRAVENOUS (IV); COMPARISON: CT cervical spin wo con* [id number] 10/18/2019 3:48 PM RADIATION DOSE METRICS: Total DLP (mGy-cm): 448.92 FINDINGS: Right common carotid artery: No stenosis. No dissection or occlusion. Right internal carotid artery: Mild stenosis at the origin. No dissection or occlusion. Right external carotid artery: No occlusion or stenosis of the origin. Left common carotid artery: No stenosis. No dissection or occlusion. Left internal carotid artery: Mild stenosis at the origin. No dissection or occlusion. Left external carotid artery: No occlusion or stenosis of the origin. Right vertebral artery: No stenosis. No dissection or occlusion. Left vertebral artery: No stenosis. No dissection or occlusion. Soft tissues: Normal. No significant soft tissue swelling. Bones/joints: No acute fracture. CT/CT angio headneck* [id number] IMPRESSION: 1. No large vessel occlusion. 2. 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 IMPRESSION: Mild stenosis at the origins of the internal carotid arteries. No severe stenosis or occlusion. REFERENCES: NASCET CRITERIA. The degree of stenosis in the cervical segment of the internal carotid artery is based on NASCET criteria. Normal is no stenosis. Mild is less than 50% stenosis. Moderate is 50-69% stenosis. Severe is 70% to 99% stenosis. Total occlusion is no detectable patent lumen.
[2024-08-15] MEDS: iohexol 350 mg/mL 500 mL Btl (per mL) IV (14:51)
--- NOTE | 2024-08-15 14:59 | W.ED.NEUROSD ---
HPI - Neuro Symptoms/Deficit General: Chief Complaint: ER Hold Stated Complaint: AMS, Stroke alert Time Seen by Provider: 08/15/24 14:40 History of Present Illness: 83-year-old female presents emergency room with strokelike symptoms generalized weakness word salad. Began last evening at around 7 PM. They monitored her and then worsened somewhere this afternoon. We called and confirmed they never had any improvement with that. As it worsened this afternoon they finally decided to bring her in a stroke alert was called initially we confirmed the last known well as being 7 PM last night. Patient is able to follow some commands. Related Data Home Medications Medication Instructions Recorded Confirmed cholecalciferol (vitamin D3) 50 4,000 unit PO QPM 10/05/19 08/15/24 mcg (2,000 unit) tablet cyclobenzaprine 10 mg tablet 10 mg PO TID PRN muscle spasm 10/05/19 08/15/24 lidocaine 5 % topical cream 1 applic topical TID PRN Pain 10/05/19 08/15/24 magnesium oxide 400 mg PO DAILY 10/05/19 08/15/24 multivitamin 1 tab PO QAM 10/05/19 08/15/24 omeprazole 20 mg capsule,delayed 20 mg PO QAM 10/05/19 08/15/24 release peg 400-propylene glycol 0.4 %-0.3 1 drop ophthalmic (eye) BID 10/05/19 08/15/24 % eye drops betamethasone dipropionate 0.05 % 1 applic topical BID PRN Skin 04/20/23 08/15/24 topical cream Irritation duloxetine 60 mg capsule,delayed 60 mg PO QPM 04/20/23 08/15/24 release sitagliptin phosphate 100 mg tablet 100 mg PO QAM 04/20/23 08/15/24 acetaminophen 500 mg tablet 1,000 mg PO Q4H PRN pain/fever 08/15/24 08/15/24 atorvastatin 40 mg tablet 40 mg PO DAILY 08/15/24 08/15/24 insulin degludec 100 unit/mL (3 24 unit SUBCUT BID 08/15/24 08/15/24 mL) subcutaneous pen (Tresiba FlexTouch U-100 insulin) lanolin alcohols-mineral 1 applic topical BEDTIME 08/15/24 08/15/24 oil-w.petrolatum-ceresin topical cream (Eucerin topical cream) lidocaine 5 % topical patch 1 - 2 patch topical DAILY PRN Pain 08/15/24 08/15/24 metformin 1,000 mg tablet 500 mg PO BID 08/15/24 08/15/24 methenamine hippurate 1 gram tablet 1 g PO BID 08/15/24 08/15/24 methyl salicylate 15 %-menthol 10 1 applic topical DAILY PRN Back 08/15/24 08/15/24 % topical cream (Analgesic [place] Pain (m.salic-menthol)) nystatin 100,000 unit/gram topical 1 applic topical BID 08/15/24 08/15/24 powder phenylephrine 0.25 %-mineral oil 1 applic WA . UP TO QID PRN 08/15/24 08/15/24 14 %-petrolatm 74.9 % rectal Hemorrhoids ointment (Preparation H) polyethylene glycol 3350 17 17 g PO .DAILY IN 8 OZ H2O 08/15/24 08/15/24 gram/dose oral powder (Miralax) vit C 250 mg-vit E 90 mg-zinc 40 1 tab PO BID 08/15/24 08/15/24 mg-copper 1 [id number] capsule (PreserVision AREDS-2) vitamin B complex 1 tab PO QAM 08/15/24 08/15/24 Previous Rx's Medication Instructions Recorded pen needle, diabetic 32 gauge x #300 ea 10/28/21 (BD Serena 2nd Gen Pen Needle) Diabetic Shoes with 3 pairs of #1 ea 06/08/22 inserts and 2 pairs of ROMAN Hose fenofibrate nanocrystallized 145 145 mg PO DAILY 90 days #90 tabs 12/02/22 mg tablet Modifications with shoe gear to #1 ea 03/21/23 stay away from surgery (Offloading) Compression stockings bilaterally #3 ea 02/23/24 Diabetic Shoes with 3 Pairs of #1 ea 02/23/24 [employer] amlodipine 10 mg tablet 10 mg PO DAILY #30 tabs 08/17/24 aspirin 81 mg tablet,delayed 81 mg PO DAILY #30 tabs 08/17/24 release carvedilol 25 mg tablet 25 mg PO BID #60 tabs 08/17/24 lisinopril 20 mg tablet 40 mg (2 x 20 mg) PO DAILY #60 tabs 08/17/24 Allergies Allergy/AdvReac Type Severity Reaction Status Date / Time acetaminophen [From Percocet] Allergy Unknown Verified 08/06/24 11:27 benztropine [From Cogentin] Allergy had Verified 08/06/24 11:27 reaction with other medication, haldol codeine Allergy Unknown Verified 08/06/24 11:27 hydrocodone [From Vicodin] Allergy Unknown Verified 08/06/24 11:27 hydroxyzine [From Vistaril] Allergy Unknown Verified 08/06/24 11:27 levothyroxine sodium Allergy unknown Verified 08/06/24 11:27 [From Synthroid] montelukast [From Singulair] Allergy Unknown Verified 08/06/24 11:27 olanzapine [From Zyprexa] Allergy Unknown Verified 08/06/24 11:27 oxycodone [From Percocet] Allergy Unknown Verified 08/06/24 11:27 quetiapine [From Seroquel] Allergy Unknown Verified 08/06/24 11:27 risperidone [From Risperdal] Allergy Unknown Verified 08/06/24 11:27 topiramate [From Topamax] Allergy Unknown Verified 08/06/24 11:27 eszopiclone [From Lunesta] AdvReac kept awake Verified 08/06/24 11:27 fluoxetine [From Prozac] AdvReac wasn't Verified 08/06/24 11:27 able to eat, nauseated haloperidol [From Haldol] AdvReac confused, Verified 08/06/24 11:27 pt stated made [facility] PFS: Medical History Type 2 diabetes mellitus 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 Surgical History History of cholecystectomy (~1960) removal of appendix and gall bladder History of hysterectomy (1973) History of foot surgery 1989 Family History Mother Hypertension Brother Hypertension Heart disease Cancer Grandmother Cancer Social History Smoking and tobacco/nicotine status: never used tobacco/nicotine Alcohol intake: never Substance/Drug Use: never Lives independently: No Housing: Assisted Living Facility Marital status: service: Yes branch: [employer] Current occupational status: retired and disabled NIH stroke score NIHSS: Level Of Consciousness - 1a: 0 Level Of Consciousness Questions - 1b: One Correct Level Of Consciousness Commands - 1c: Both Correct Best Gaze - 2: Normal Visual Seay - 3: No Visual Loss Facial Palsy - 4: Normal Motor Arm Right - 5: No Drift Motor Arm Left - 5: No Drift Motor Leg Right - 6: No Drift Motor Leg Left - 6: No Drift Limb Ataxia - 7: Present In One Limb Sensory - 8: Mild To Moderate Loss Best Language - 9: Mild/Moderate Aphasia Dysarthia - 10: Mild/Moderate Dysarthia Extinction And Inattention - 11: 0 Score: Total Score: 5 Physical Exam Const: GENERAL APPEARANCE: cooperative ORIENTATION/CONSCIOUSNESS: Yes awake HENMT: COMMON NORMALS: normocephalic, atraumatic and hearing grossly normal bilaterally HEAD & SCALP: normocephalic and atraumatic Resp: COMMON NORMALS: normal respiratory effort, No retractions, No use of accessory muscles and clear to auscultation bilaterally AUSCULTATION: clear to auscultation bilaterally Cardio: COMMON NORMALS: regular rate, regular rhythm and No murmurs present (Cardio) RATE: regular rate RHYTHM: regular rhythm GI: COMMON NORMALS: Soft to palpation and No hepatosplenomegaly present AUSCULTATION: Yes normoactive bowel sounds PALPATION: Yes Soft to palpation, No Tenderness to palpation present (GI), No Guarding due to palpation present (GI) and Yes No hepatosplenomegaly present Extremity: COMMON NORMALS: normal to inspection, capillary refill normal, no clubbing, cyanosis or edema, no calf tenderness and no pedal edema Skin: COMMON NORMALS: no rashes or lesions noted GENERAL SKIN EXAM: no rashes or lesions noted Course Vital Signs: Vital signs: Vital Signs Temperature 98.2 F 08/17/24 13:31 Pulse Rate 82 08/17/24 13:31 Respiratory Rate 16 08/17/24 13:31 Blood Pressure 185/79 08/17/24 13:31 Pulse Oximetry 97 08/17/24 13:31 Oxygen Delivery Me thod Room Air 08/17/24 07:00 Oxygen Flow Rate 2 08/15/24 21:16 MDM - Neuro Symptoms/Deficit Medical Decision Making NIH is 5 patient is out of the timeframe window for both TNKase. She is also out of the window for embolectomy as we could not get her to receiving facility with enough time to perform any procedures. While there is some stenosis in the first branch of the left MCA there is no embolism. I discussed Dr. Quarles she agrees. Will admit the patient for new stroke. Patient was given aspirin in the emergency room she is already on atorvastatin. Her blood pressure at times was as high as 215 and 220 systolic she was given 10 of labetalol we will continue to monitor. Will admit to hospitalist for subacute stroke. Lab Data 08/17/24 06:30 08/17/24 06:[address] 08/15/24 14:41 Impression: 1. Negative for hemorrhage or recent infarct. 2. Moderate cerebral atrophy. 3. The report was called to Dr. Tripp in the emergency room at 1450 hours. Head/Neck CTA 08/15/24 14:42 IMPRESSION: 1. No large vessel occlusion. 2. 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 IMPRESSION: Mild stenosis at the origins of the internal carotid arteries. No severe stenosis or occlusion. REFERENCES: NASCET CRITERIA. The degree of stenosis in the cervical segment of the internal carotid artery is based on NASCET criteria. Normal is no stenosis. Mild is less than 50% stenosis. Moderate is 50-69% stenosis. Severe is 70% to 99% stenosis. Total occlusion is no detectable patent lumen. Head MRI 08/17/24 12:18 IMPRESSION: 1. No acute infarct. Diffusion imaging is normal. 2. Mild progression of small vessel disease since 2010. 3. No large infarcts. 4. No edema in the posterior fossa or occipital lobes. Laboratory Results WBC 8.92 10^3/uL (3.29-11.43) 08/15/24 15:00 RBC 3.73 10^6/uL (3.85-5.65) L 08/15/24 15:00 Hgb 10.60 g/dL (11.27-16.99) L 08/15/24 15:00 Hct 36.0 % (36-47) 08/15/24 15:00 MCV 96.5 fl (85-98) 08/15/24 15:00 MCH 28.4 pg (27-33) 08/15/24 15:00 MCHC 29.4 g/dL (30-55) L 08/15/24 15:00 RDW 14.6 % (12.1-15.1) 08/15/24 15:00 Plt Count 294 10^3/cmm (157-399) 08/15/24 15:00 MPV 10.8 fL (7.4-10.4) H 08/15/24 15:00 Neut % (Auto) 65.6 % 08/15/24 15:00 Lymph % (Auto) 21.1 % 08/15/24 15:00 [place] % (Auto) 8.6 % 08/15/24 15:00 Eos % (Auto) 2.9 % 08/15/24 15:00 Baso % (Auto) 1.5 % 08/15/24 15:00 Neut # (Auto) 5.85 10^3/uL (1.8-7.7) 08/15/24 15:00 Lymph # (Auto) 1.9 10^3/uL (0.8-4.8) 08/15/24 15:00 [place] # (Auto) 0.8 10^3/uL (0.2-0.9) 08/15/24 15:00 Eos # (Auto) 0.3 10^3/uL (0.0-0.8) 08/15/24 15:00 Baso # (Auto) 0.1 10^3/uL (0.0-0.1) 08/15/24 15:00 Nucleated RBC % (auto) 0 % 08/15/24 15:00 Nucleated RBCs # 0.0 /100WBC 08/15/24 15:00 PT 14.30 SECONDS (12.1-14.9) 08/15/24 15:00 INR 1.07 (0.8-1.2) 08/15/24 15:00 APTT 26.3 SECONDS (23.9-36.7) 08/15/24 15:00 Sodium 132 mmol/L (136-145) L 08/15/24 15:00 Potassium 4.0 mmol/L (3.5-5.1) 08/15/24 15:00 Chloride 96 mmol/L (98-107) L 08/15/24 15:00 Carbon Dioxide 25 mmol/L (22-29) 08/15/24 15:00 Anion Gap 15.0 (5-19) 08/15/24 15:00 BUN 28 mg/dL (8-23) H 08/15/24 15:00 Creatinine 1.3 mg/dL (0.5-0.9) H 08/15/24 15:00 GFR Calculation Not Reportable 08/15/24 15:00 Glucose 171 mg/dL (65-115) H 08/15/24 15:00 POC Glucose 172 mg/dL (70-110) H 08/15/24 14:58 Calculated Osmolality 284 mOsm/kg (285-295) L 08/15/24 15:00 Lactic Acid 1.6 mmol/L (0.5-2.2) 08/15/24 15:00 Calcium 9.0 mg/dL (8.5-10.5) 08/15/24 15:00 Total Bilirubin 0.2 mg/dL (0.15-1.2) 08/15/24 15:00 AST 12 U/L (0-32) 08/15/24 15:00 ALT 9 U/L (0-33) 08/15/24 15:00 Alkaline Phosphatase 38 U/L (35-105) 08/15/24 15:00 Creatine Kinase 41 U/L (26-192) 08/15/24 15:00 Total Protein 5.7 g/dL (6.6-8.7) L 08/15/24 15:00 Albumin 3.4 g/dL (3.5-5.2) L 08/15/24 15:00 Globulin 2.3 g/dL (1.3-4.6) 08/15/24 15:00 Procalcitonin 0.05 ng/mL (0-0.5) 08/15/24 15:00 TSH 2.07 uIU/mL (0.27-4.20) 08/15/24 15:00 Urine Color Yellow (Yellow) 08/15/24 15:47 Urine Appearance Clear (CLEAR) 08/15/24 15:47 Urine pH 6.5 (5-7) 08/15/24 15:47 Ur Specific [place] 1.045 (1.005-1.030) H 08/15/24 15:47 Urine Protein 2+ (Negative) A 08/15/24 15:47 Urine Glucose (UA) Negative (Normal) 08/15/24 15:47 Urine Ketones Negative (Negative) 08/15/24 15:47 Urine Blood Negative (Negative) 08/15/24 15:47 Urine Nitrate Negative (Negative) 08/15/24 15:47 Urine Bilirubin Negative (Negative) 08/15/24 15:47 Urine Urobilinogen 0.2 mg/dL (Negative) 08/15/24 15:47 Ur Leukocyte Esterase Negative (Negative) 08/15/24 15:47 Urine RBC 0-2 /hpf (0-2) 08/15/24 15:47 Urine WBC 6-10 /hpf (0-5) 08/15/24 15:47 Ur Squamous Epith Cells 0-5 /hpf (0-5) 08/15/24 15:47 Amorphous Sediment Not Reportable 08/15/24 15:47 Urine Bacteria None seen /hpf (NONE) 08/15/24 15:47 Hyaline Casts 21.92 /lpf 08/15/24 15:47 Urine Opiates Screen Negative ng/mL (Negative) 08/15/24 15:47 Ur Barbiturates Screen Negative ng/mL (Negative) 08/15/24 15:47 Ur Phencyclidine Scrn Negative ng/mL (Negative) 08/15/24 15:47 Ur Amphetamines Screen Negative ng/mL (Negative) 08/15/24 15:47 U Benzodiazepines Scrn Negative ng/mL (Negative) 08/15/24 15:47 Urine Cocaine Screen Negative ng/mL (Negative) 08/15/24 15:47 U Marijuana (THC) Screen Negative ng/mL (Negative) 08/15/24 15:47 Coronavirus (PCR) Negative (Negative) 08/15/24 15:36 Influenza A (PCR) Negative (Negative) 08/15/24 15:36 Influenza Type B (PCR) Negative (Negative) 08/15/24 15:36 RSV (PCR) Negative (Negative) 08/15/24 15:36 All radiology interpretation(s) finalized by discharge Discharge Plan Discharge Patient Disposition: Admitted As Inpatient Admit Provider: Mikayla,Hermann Clinical Impression: Cerebrovascular accident, Type 2 diabetes, controlled, with neuropathy, Hypertension Condition: Stable Discharge Diet: Cardiac and Diabetic Discharge Activity: Resume usual activity and Increase activity as tolerated Coding Level of Care Code 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
[2024-08-15 15:07] LABS: Glucose Point of Care 172 mg/dL (70-110)
[2024-08-15 15:15] LABS: Basophils # 0.1 10^3/uL (0.0-0.1); Basophils % 1.5 %; Eosinophils # 0.3 10^3/uL (0.0-0.8); Eosinophils % 2.9 %; Lymphocytes # 1.9 10^3/uL (0.8-4.8); Lymphocytes % 21.1 %; Mean Corpuscular HGB Conc 29.4 g/dL (30-55); Mean Corpuscular Hemoglobin 28.4 pg (27-33); Mean Corpuscular Volume 96.5 fl (85-98); Mean Platelet Volume 10.8 fL (7.4-10.4); Monocytes # 0.8 10^3/uL (0.2-0.9); Monocytes % 8.6 %; Neutrophils # 5.85 10^3/uL (1.8-7.7); Neutrophils % 65.6 %; Nucleated Red Blood Cells % 0 %; Platelet Count 294 10^3/cmm (157-399); Red Blood Count 3.73 10^6/uL (3.85-5.65); Red Cell Distribution Width 14.6 % (12.1-15.1); White Blood Count 8.92 10^3/uL (3.29-11.43)
[2024-08-15 15:25] LABS: INR 1.07 (0.8-1.2); Partial Thromboplastin Time 26.3 SECONDS (23.9-36.7)
[2024-08-15 15:29] LABS: Alanine Aminotransferase 9 U/L (0-33); Albumin Level 3.4 g/dL (3.5-5.2); Alkaline Phosphatase 38 U/L (35-105); Aspartate Amino Transferase 12 U/L (0-32); Blood Urea Nitrogen 28 mg/dL (8-23); Carbon Dioxide 25 mmol/L (22-29); Chloride 96 mmol/L (98-107); Creatine Phosphokinase 41 U/L (26-192); Globulin 2.3 g/dL (1.3-4.6); Glucose 171 mg/dL (65-115); Osmolality Calculated 284 mOsm/kg (285-295); Sodium 132 mmol/L (136-145); Total Bilirubin 0.2 mg/dL (0.15-1.2); Total Protein 5.7 g/dL (6.6-8.7)
[2024-08-15 15:30] LABS: Lactic Sepsis W/Reflex 1.6 mmol/L (0.5-2.2)
[2024-08-15 15:59] LABS: Bilirubin Urine Negative (Negative); Blood Urine Negative (Negative); Glucose Urine UA Negative (Normal); Ketones Urine Negative (Negative); Leukocyte Esterase Urine Negative (Negative); Nitrate Urine Negative (Negative); Protein Urine 2+ (Negative); Urine Appearance Clear (CLEAR); Urine Color Yellow (Yellow); Urobilinogen Urine 0.2 mg/dL (Negative); pH Urine 6.5 (5-7)
[2024-08-15 16:02] LABS: Add Urine Microscopic? YES; Bacteria Urine None Seen /hpf; Hyaline Casts Urine 21.92 /lpf; RBC Urine 0-2 /hpf (0-2); Squamous Epithelial Cell Urine 0-5 /hpf (0-5)
[2024-08-15 16:06] LABS: Amphetamines Screen Urine Negative (Negative); Barbiturates Screen Urine Negative (Negative); Benzodiazepines Screen Urine Negative (Negative); Cocaine Screen Urine Negative (Negative); Opiate Screen Urine Negative (Negative); PCP Screen Urine Negative (Negative); THC Screen Urine Negative (Negative)
[2024-08-15 16:22] LABS: Covid PCR NEGATIVE (Negative); Influenza A NEGATIVE (Negative); Influenza B NEGATIVE (Negative); Respiratory Syncytial Virus Ce NEGATIVE (Negative)
[2024-08-15 16:36] LABS: Specific Gravity, Urine 1.045 (1.005-1.030)
[2024-08-15 16:39] LABS: Add Urine Culture? No; UA Slide Review UA Slide Review Perf
--- NOTE | 2024-08-15 16:48 | P.HP_ITS ---
Providers/Chief Complaint 2 Primary Care Provider: MARKUS Wilson Chief Complaint: AMS, Stroke alert History of Present Illness Ashley Dover is a 83 year old female with past medical history of hypertension, assisted living resident, hyperlipidemia, type 2 diabetes mellitus was sent to the ER today because of possible strokelike symptoms and generalized weakness. As per the documentation from the ER physician she started having word salad which seem to have started yesterday evening around 7 PM. As patient did not improve for most part of the day today she was sent to the ER. On examination patient is awake and alert. She is alert to herself, being in hospital, her address. She states she has been having headache which is more so global on and off for last 2 weeks. Denies any nausea, vomiting. Complaining of weakness more so in her legs. In the ER on presentation she had an NIH scale of 5. Patient was found to be out of the window for tPA after discussion with on-call neurologist there was no concern for embolism neurologist recommended patient to be admitted for further stroke workup. She had systolic blood pressure going up to 220 mmHg and she was given 10 mg of IV labetalol. Medicine was consulted for further evaluation and management. Patient denies any dysuria, diarrhea, nausea, vomiting, dizziness, abdominal pain. Review of Systems 2 General: Reports: 10 or more systems reviewed and unremarkable except in HPI and below Const: Denies: fever(s), chills, body aches, change in appetite, change in weight, malaise, night sweats, diaphoresis, change in sleep pattern, daytime sleepiness or snoring Eyes: Denies: change in vision, blurry vision, photophobia, eye discomfort or eye discharge ENMT: Denies: throat pain, enlarged tonsils, hoarseness, mouth pain, oral sores, dry mouth, tinnitus, nasal congestion or post nasal drip Card: Denies: chest pain, palpitations, irregular heart rhythm, edema, swelling of feet/ankles, lightheadedness, syncope, pre-syncope, dyspnea on exertion, orthopnea, leg pain with exertion or acrocyanosis Resp: Denies: dyspnea, productive cough, non-productive cough, wheezing, stridor, pain on inspiration, change in phlegm color, hemoptysis or chest congestion GI: Denies: abdominal pain, nausea, vomiting, hematemesis, coffee ground emesis, dysphagia, heartburn, diarrhea, constipation, bloating, GI cramping, change in bowel habits, pain on defecation, hematochezia or melena : Denies: flank pain, dysuria, urinary frequency, urinary urgency, urinary hesitancy, nocturia or hematuria Musc: Denies: neck pain, back pain, extremity pain, joint pain, joint swelling, joint redness, joint stiffness or limited range of motion Neuro: Denies: headache(s), numbness in extremities, weakness in extremities, sensory changes, lack of coordination, difficulty walking, frequent falls, dizziness, vertigo, confusion, Slurred speech present, difficulty communicating thoughts or seizure-like activity Psych: Denies: anxiety, depression, mood swings, panic attacks, hopelessness or irritability Endo: Denies: polyuria, polydipsia, tired all the time, cold intolerance, excessive sweating, flushing or heat intolerance Oseas/Lymph: Denies: easy bruising or easy bleeding All/Imm: Denies: tongue swelling, facial swelling or acute wheezing Medications/Allergies Home Medications Medication Instructions Recorded Confirmed Last Taken Type carvedilol 25 mg tablet 25 mg PO DAILY 10/05/19 08/15/24 08/15/24 History cholecalciferol (vitamin D3) 50 4,000 unit PO QPM 10/05/19 08/15/24 08/14/24 History mcg (2,000 unit) tablet cyclobenzaprine 10 mg tablet 10 mg PO TID PRN muscle spasm 10/05/19 08/15/24 08/14/24 History lidocaine 5 % topical cream 1 applic topical TID PRN Pain 10/05/19 08/15/24 07/13/24 History magnesium oxide 400 mg PO DAILY 10/05/19 08/15/24 08/15/24 History multivitamin 1 tab PO QAM 10/05/19 08/15/24 08/15/24 History omeprazole 20 mg capsule,delayed 20 mg PO QAM 10/05/19 08/15/24 08/15/24 History release peg 400-propylene glycol 0.4 %-0.3 1 drop ophthalmic (eye) BID 10/05/19 08/15/24 08/15/24 History % eye drops pen needle, diabetic 32 gauge x #300 ea 10/28/21 08/15/24 Unknown Rx (BD Serena 2nd Gen Pen Needle) Diabetic Shoes with 3 pairs of #1 ea 06/08/22 08/15/24 Unknown Rx inserts and 2 pairs of ROMAN Hose fenofibrate nanocrystallized 145 145 mg PO DAILY 90 days #90 tabs 12/02/22 08/15/24 08/15/24 Rx mg tablet Modifications with shoe gear to #1 ea 03/21/23 08/15/24 Unknown Rx stay away from surgery (Offloading) betamethasone dipropionate 0.05 % 1 applic topical BID PRN Skin 04/20/23 08/15/24 08/07/24 History topical cream Irritation duloxetine 60 mg capsule,delayed 60 mg PO QPM 04/20/23 08/15/24 08/14/24 History release sitagliptin phosphate 100 mg tablet 100 mg PO QAM 04/20/23 08/15/24 08/15/24 History Compression stockings bilaterally #3 ea 02/23/24 08/15/24 Unknown Rx Diabetic Shoes with 3 Pairs of #1 ea 02/23/24 08/15/24 Unknown Rx Custom Orthotics acetaminophen 500 mg tablet 1,000 mg PO Q4H PRN pain/fever 08/15/24 08/15/24 08/15/24 History atorvastatin 40 mg tablet 40 mg PO DAILY 08/15/24 08/15/24 08/14/24 History insulin degludec 100 unit/mL (3 24 unit SUBCUT BID 08/15/24 08/15/24 08/15/24 History mL) subcutaneous pen (Tresiba FlexTouch U-100 insulin) lanolin alcohols-mineral 1 applic topical BEDTIME 08/15/24 08/15/24 08/14/24 History oil-w.petrolatum-ceresin topical cream (Eucerin topical cream) lidocaine 5 % topical patch 1 - 2 patch topical DAILY PRN Pain 08/15/24 08/15/24 07/13/24 History lisinopril 20 mg tablet 20 mg PO DAILY 08/15/24 08/15/24 08/15/24 History meloxicam 15 mg tablet 15 mg PO QAM 08/15/24 08/15/24 08/15/24 History metformin 1,000 mg tablet 500 mg PO BID 08/15/24 08/15/24 08/15/24 History methenamine hippurate 1 gram tablet 1 g PO BID 08/15/24 08/15/24 08/15/24 History methyl salicylate 15 %-menthol 10 1 applic topical DAILY PRN Back 08/15/24 08/15/24 Unknown History % topical cream (Analgesic [place] Pain (m.salic-menthol)) nystatin 100,000 unit/gram topical 1 applic topical BID 08/15/24 08/15/24 08/15/24 History powder phenylephrine 0.25 %-mineral oil 1 applic [place] . UP TO QID PRN 08/15/24 08/15/24 Unknown History 14 %-petrolatm 74.9 % rectal Hemorrhoids ointment (Preparation H) polyethylene glycol 3350 17 17 g PO .DAILY IN 8 OZ H2O 08/15/24 08/15/24 08/14/24 History gram/dose oral powder (Miralax) vit C 250 mg-vit E 90 mg-zinc 40 1 tab PO BID 08/15/24 08/15/24 08/15/24 History mg-copper 1 hr-lyobjx-jswaiq capsule (PreserVision AREDS-2) vitamin B complex 1 tab PO QAM 08/15/24 08/15/24 08/15/24 History Allergies Allergy/AdvReac Type Severity Reaction Status Date / Time acetaminophen [From Percocet] Allergy Unknown Verified 08/06/24 11:27 benztropine [From Cogentin] Allergy had Verified 08/06/24 11:27 reaction with other medication, haldol codeine Allergy Unknown Verified 08/06/24 11:27 hydrocodone [From Vicodin] Allergy Unknown Verified 08/06/24 11:27 hydroxyzine [From Vistaril] Allergy Unknown Verified 08/06/24 11:27 levothyroxine sodium Allergy unknown Verified 08/06/24 11:27 [From Synthroid] montelukast [From Singulair] Allergy Unknown Verified 08/06/24 11:27 olanzapine [From Zyprexa] Allergy Unknown Verified 08/06/24 11:27 oxycodone [From Percocet] Allergy Unknown Verified 08/06/24 11:27 quetiapine [From Seroquel] Allergy Unknown Verified 08/06/24 11:27 risperidone [From Risperdal] Allergy Unknown Verified 08/06/24 11:27 topiramate [From Topamax] Allergy Unknown Verified 08/06/24 11:27 eszopiclone [From Lunesta] AdvReac kept awake Verified 08/06/24 11:27 fluoxetine [From Prozac] AdvReac wasn't Verified 08/06/24 11:27 able to eat, nauseated haloperidol [From Haldol] AdvReac confused, Verified 08/06/24 11:27 pt stated made silly PFSH Acute 2 PFSH: Medical History Type 2 diabetes mellitus 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 Surgical History (Reviewed 08/06/24 @ 11: by Leilani Alberto MA) History of cholecystectomy (~1960) removal of appendix and gall bladder History of hysterectomy (1973) History of foot surgery 1989 Family History Mother Hypertension Brother Hypertension Heart disease Cancer Grandmother Cancer Social History Smoking and tobacco/nicotine status: never used tobacco/nicotine Alcohol intake: never Substance/Drug Use: never Lives independently: No Housing: Assisted Living Facility Marital status: service: Yes branch: [employer] Current occupational status: retired and disabled Vitals/I&O/Wt Last Vital Signs Temp 98.2 F 08/15/24 14:56 Pulse 84 08/15/24 15:55 Resp 19 H 08/15/24 15:55 BP 190/100 08/15/24 16:14 Pulse Ox 96 08/15/24 15:55 O2 Del Method Room Air 08/15/24 15:55 Physical Exam 2 Narrative: General: No acute distress, AO x 2 to 3, pleasant, occasional episode of confusion, no slurred speech HEENT: PERRLA, pupils bilaterally equal and reactive Chest: Normal vesicular breath sounds, no added sounds, equal good air entry bilaterally CVS: S1-S2 regular, no murmurs, no tachycardia, no gallops, no rubs Abdomen: Soft, nontender, no organomegaly, bowel sounds present Neuro: Power lower limbs left 3/5, right 2/5, upper limb bilaterally 3/5, mild right-sided facial droop Data 08/15/24 15:00 08/15/24 15:00 Other Labs: Radiology Impressions Head CT 08/15/24 14:41 Impression: 1. Negative for hemorrhage or recent infarct. 2. Moderate cerebral atrophy. 3. The report was called to Dr. Tripp in the emergency room at 1450 hours. Head/Neck CTA 08/15/24 14:42 IMPRESSION: 1. No large vessel occlusion. 2. 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 IMPRESSION: Mild stenosis at the origins of the internal carotid arteries. No severe stenosis or occlusion. REFERENCES: NASCET CRITERIA. The degree of stenosis in the cervical segment of the internal carotid artery is based on NASCET criteria. Normal is no stenosis. Mild is less than 50% stenosis. Moderate is 50-69% stenosis. Severe is 70% to 99% stenosis. Total occlusion is no detectable patent lumen. Laboratory Results A&P Assessment and plan (1) Cerebrovascular accident: Concern for stroke as per neurologist. Not in tPA window. No concern for embolism. Does have stenosis of the A1 segment of left anterior cerebral artery. Conservative treatment. NPO. Speech therapy, PT, OT. Advance diet as per speech evaluation. Aspirin 81 mg daily, statin 40 mg daily. Check A1c, lipid panel. (2) Hypertensive urgency: Permissible hypertension. Goal blood pressure less than 220/100 mmHg. Can treat with 10 mg of IV hydralazine every 6 hours as needed. The left stricter blood pressure goal from tomorrow and start her home dose of Coreg and lisinopril accordingly. (3) Type 2 diabetes, controlled, with neuropathy: Check A1c. Patient is currently NPO. Insulin sliding scale at low-dose protocol every 6 hour. Takes long-acting insulin 22 units twice daily. As patient would be n.p.o. will change to 15 units twice daily. Hypoglycemia protocol. Plan CKD: Creatinine currently 1.3. Stable since last 1 month. Monitor renal functions daily. CODE STATUS: DNR/DNI as per the paperwork from assisted living. NPO. Advance her speech evaluation. Physical therapy Protonix OPD prophylaxis Heparin 5000 every 12 for DVT prophylaxis Discharge plan: Plan to discharge back to assisted living versus SNF depending on physical therapy evaluation and speech evaluation. Attestations 2 Medical Necessity Statement*: Admission for more than 2 midnights for management of hypertensive urgency, stroke while antihypertensives are adjusted, safe discharge planning is soft in a patient from assisted living facility. Diagnoses Cerebrovascular accident I63.9 Hypertensive urgency I16.0 Type 2 diabetes, controlled, with neuropathy E11.40
[2024-08-15 17:22] LABS: Procalcitonin 0.05 ng/mL (0-0.5)
[2024-08-15] MEDS: aspirin 81 mg Chew Tablet 324 MG PO (17:50)
[2024-08-15] MEDS: labetalol 5 mg/mL SDV 20mL 10 MG IVP (17:51)
[2024-08-15] MEDS: sodium chloride 0.9% 1,000 ML 75 ML IV (17:53)
--- NOTE | 2024-08-15 19:23 | PC.NURSE ---
This nurse contacted admitting physician related to pts high blood pressures. Dr. Degroot instructed not to treat unless blood pressure is over 220 systolic.
[2024-08-15 20:49] LABS: Glucose Point of Care 173 mg/dL (70-110)
[2024-08-15 21:23] LABS: Thyroid Stimulating Hormone 2.07 uIU/mL (0.27-4.20)
[2024-08-15] MEDS: atorvastatin 40 mg Tablet PO (22:12)
[2024-08-15] MEDS: pantoprazole 40 mg SDV IVP (22:12)
[2024-08-15] MEDS: insulin lispro 100 unit/1 mL SUBCUT (22:12)
[2024-08-15] MEDS: duloxetine 60 mg Capsule PO (22:12)
[2024-08-15] MEDS: heparin 5,000 unit/mL INJ 1 mL 5000 UNIT SUBCUT (22:12)
[2024-08-16] VITALS (9 sets, daily range): BP systolic 156–193; BP diastolic 66–101; PULSE 78–91; RESP 13–18; TEMP 36.4–36.8; O2SAT 91–94
[2024-08-16 02:22] LABS: Glucose Point of Care 151 mg/dL (70-110)
[2024-08-16] MEDS: insulin lispro 100 unit/1 mL SUBCUT ×3 (02:28→20:08)
[2024-08-16 05:31] LABS: Basophils # 0.2 10^3/uL (0.0-0.1); Basophils % 1.8 %; Eosinophils # 0.4 10^3/uL (0.0-0.8); Eosinophils % 4.2 %; Hematocrit 36.7 % (36-47); Lymphocytes # 2.4 10^3/uL (0.8-4.8); Lymphocytes % 24.8 %; Mean Corpuscular HGB Conc 30.8 g/dL (30-55); Mean Corpuscular Hemoglobin 27.4 pg (27-33); Mean Corpuscular Volume 89.1 fl (85-98); Mean Platelet Volume 11.2 fL (7.4-10.4); Monocytes # 0.8 10^3/uL (0.2-0.9); Monocytes % 8.4 %; Neutrophils # 5.88 10^3/uL (1.8-7.7); Neutrophils % 60.6 %; Nucleated Red Blood Cells % 0 %; Platelet Count 353 10^3/cmm (157-399); Red Blood Count 4.12 10^6/uL (3.85-5.65); Red Cell Distribution Width 14.8 % (12.1-15.1); White Blood Count 9.71 10^3/uL (3.29-11.43)
[2024-08-16 05:59] LABS: Alanine Aminotransferase 9 U/L (0-33); Albumin Level 3.7 g/dL (3.5-5.2); Alkaline Phosphatase 42 U/L (35-105); Anion Gap 12.8 (5-19); Aspartate Amino Transferase 15 U/L (0-32); Blood Urea Nitrogen 21 mg/dL (8-23); Calcium 9.6 mg/dL (8.5-10.5); Carbon Dioxide 27 mmol/L (22-29); Chloride 103 mmol/L (98-107); Chol HDL Ratio 5.26 mg/dL (0.0-4.40); Cholesterol 163 mg/dL (0-200); Creatinine Clr Calc Pharmacy 37.0029; Globulin 2.7 g/dL (1.3-4.6); Glucose 133 mg/dL (65-115); HDL Cholesterol 31 mg/dL (60-100); LDL Cholesterol Calculated 73 mg/dL (50-129); LDL HDL Ratio 2.35 RATIO (0.00-3.22); Magnesium 1.8 mg/dL (1.7-2.3); Osmolality Calculated 293 mOsm/kg (285-295); Phosphorus 3.5 mg/dL (2.5-4.5); Potassium 3.8 mmol/L (3.5-5.1); Sodium 139 mmol/L (136-145); Total Bilirubin 0.2 mg/dL (0.15-1.2); Total Protein 6.4 g/dL (6.6-8.7); Triglycerides 294 mg/dL (0-150)
[2024-08-16 06:03] LABS: Procalcitonin 0.05 ng/mL (0-0.5)
[2024-08-16 06:07] LABS: Estmated Average Glucose 174; Hemoglobin A1C 7.7 % (4.0-6.0)
[2024-08-16] MEDS: sodium chloride 0.9% 1,000 ML 75 ML IV ×2 (06:09→19:52)
[2024-08-16 07:32] LABS: Glucose Point of Care 156 mg/dL (70-110)
[2024-08-16] MEDS: gadobenate dimeglumine 20 mL vial IV (10:56)
[2024-08-16] MEDS: heparin 5,000 unit/mL INJ 1 mL 5000 UNIT SUBCUT ×2 (10:58→19:52)
[2024-08-16] MEDS: lisinopril 20 mg Tablet PO (10:59)
[2024-08-16] MEDS: aspirin 81 mg EC Tablet PO (10:59)
[2024-08-16] MEDS: carvedilol 25 mg Tablet PO ×2 (10:59→17:42)
[2024-08-16] MEDS: fenofibrate 145 mg Tablet PO (10:59)
[2024-08-16] MEDS: insulin glargine 100 units/1 mL 12 UNIT SUBCUT (11:42)
--- NOTE | 2024-08-16 13:10 | P.PN_ITS ---
Subjective 2 Subjective: No acute vents overnight. Patient blood pressure has been elevated overnight. Today morning patient is more awake and send alert. Seen with friend at bedside. Vitals/I&O/Wt Last Vital Signs Temp 98.2 F 08/16/24 07:08 Pulse 84 08/16/24 07:08 Resp 17 08/16/24 07:08 BP 193/101 08/16/24 07:08 Pulse Ox 91 08/16/24 07:08 O2 Del Method Room Air 08/16/24 07:08 O2 Flow Rate 2 08/15/24 21:16 08/15/24 08/16/24 08/16/24 22:59 06:59 14:59 Intake Total 0 / 0 1320 / 1320 Output Total 150 / 150 Balance 0 / 0 1170 / 1170 Weight last 48 hrs Weight 56.954 kg Weight 56.971 kg Weight 90.293 kg Physical Exam 2 Narrative: General: No acute distress, AO x 2 to 3, pleasant, occasional episode of confusion, no slurred speech HEENT: PERRLA, pupils bilaterally equal and reactive Chest: Normal vesicular breath sounds, no added sounds, equal good air entry bilaterally CVS: S1-S2 regular, no murmurs, no tachycardia, no gallops, no rubs Abdomen: Soft, nontender, no organomegaly, bowel sounds present Neuro: Power lower limbs left 3/5, right 2/5, upper limb bilaterally 3/5, mild right-sided facial droop Data 08/16/24 04:35 08/16/24 04:35 Micro: Microbiology 08/15/24 16:01 Blood Culture - Preliminary Blood SPECIMEN COLLECTED A&P Assessment and plan (1) Cerebrovascular accident: Concern for stroke as per neurologist. Not in tPA window. No concern for embolism. Does have stenosis of the A1 segment of left anterior cerebral artery. Conservative treatment. NPO. Advance diet as per speech evaluation. Follow-up with speech therapy, PT, OT. Aspirin 81 mg daily, statin 40 mg daily. Appreciate A1c, lipid panel. Plan for MRI brain today for further evaluation of stroke and to rule out press syndrome (2) Hypertensive urgency: Goal blood pressure 140 over 90 mmHg. Restart home dose of Coreg and lisinopril today. Uptitrate as for goal blood pressures. (3) Type 2 diabetes, controlled, with neuropathy: A1c 7.7 Patient is currently NPO. Once on dietwill change to Ac and HS schedule. Insulin sliding scale at low-dose protocol every 6 hour. Takes long-acting insulin 22 units twice daily. As patient would be n.p.o. will change to 15 units twice daily. Hypoglycemia protocol. Plan CKD: Creatinine currently 1.3. Stable since last 1 month. Monitor renal functions daily. CODE STATUS: DNR/DNI as per the paperwork from assisted living. NPO. Advance her speech evaluation. Physical therapy Protonix OPD prophylaxis Heparin 5000 every 12 for DVT prophylaxis Discharge plan: Plan to discharge back to assisted living versus SNF depending on physical therapy evaluation and speech evaluation. Patient's care discussed in detail with patient's DPOA Mr. Vineet Ibanez at bedside. All the questions were answered. Attestations 2 Medical Necessity Statement*: Requires further hospitalization for management of hypertensive urgency while antihypertensives are adjusted, strokelike symptoms while press syndrome ruled out and safe discharge planning is sought. Diagnoses Cerebrovascular accident I63.9 Hypertensive urgency I16.0 Type 2 diabetes, controlled, with neuropathy E11.40
[2024-08-16 14:59] LABS: Glucose Point of Care 138 mg/dL (70-110)
[2024-08-16] MEDS: duloxetine 60 mg Capsule PO (17:42)
[2024-08-16] MEDS: pantoprazole 40 mg SDV IVP (19:52)
[2024-08-16] MEDS: atorvastatin 40 mg Tablet PO (20:08)
[2024-08-16 20:22] LABS: Glucose Point of Care 303 mg/dL (70-110)
--- NOTE | 2024-08-16 20:27 | USCV_ITS ---
Ashley Dover Age: 83 Gender: F : 1940 Exam Date: 08/16/2024 02:55 Ordering Phys: Hermann Degroot MD Technologist: ANTON Exam Location: [facility] – [place] Indication: stroke, aphasia BP: 205 / 137 HR: 77 Rhythm: Sinus Technical Quality: Adequate MEASUREMENTS (Male / Female) Normal Values 2D ECHO LV Diastolic Diameter PLAX 4.7 cm 4.2 - 5.9 / 3.9 - 5.3 cm IVS Diastolic Thickness 1.8 cm 0.6 - 1.0 / 0.6 - 0.9 cm IVS Systolic Thickness 2.2 cm LVPW Diastolic Thickness 1.1 cm 0.6 - 1.0 / 0.6 - 0.9 cm LVPW Systolic Thickness 1.4 cm LVOT Diameter 2.0 cm LV Ejection Fraction 2D Teich 60.9 % LV Ejection Fraction MOD 4C 51.9 % LV Ejection Fraction MOD 2C 56.5 % LV Ejection Fraction 2C AL 58.8 % LA Diameter 3.3 cm LA Sys Volume AL 89.7 cm cubed LA Sys Volume Index AL 44.0 cm cubed/m squared Aorta at Sinotubular Diameter 2.9 cm IVC Diameter 0.6 cm M-MODE LA Ao Ratio MM 1.0 AV Cusp Separation MM 1.5 cm DOPPLER AV Peak Velocity 102.0 cm/s LVOT Peak Velocity 67.0 cm/s AV Area Cont Eq vti 2.0 cm squared AV Area Cont Eq pk 2.0 cm squared MV Peak Velocity 102.0 cm/s MV Area PHT 3.2 cm squared Mitral E to A Ratio 0.7 TV Peak E Velocity 36.0 cm/s PV Peak Velocity 84.0 cm/s FINDINGS Left Ventricle Moderate concentric left ventricular hypertrophy. LV ejection fraction around 55%.Grade I/IV diastolic dysfunction (abnormal relaxation filling pattern), normal to mildly elevated filling pressures. Right Ventricle The right ventricle is normal in size and function. Right Atrium The right atrium is normal in size. Left Atrium Mildly increased left atrial size. Mitral Valve Thickened mitral valve. Mild mitral annular calcification. Aortic Valve Thickened aortic valve. Tricuspid Valve No gross abnormalities noted Pulmonic Valve No gross abnormalities noted Pericardium Normal pericardium without effusion. Aorta Normal ascending aorta dimension. IVC Normal inferior vena cava. CONCLUSIONS Moderate concentric left ventricular hypertrophy. LV ejection fraction around 55%. Grade I/IV diastolic dysfunction (abnormal relaxation filling pattern), normal to mildly elevated filling pressures. Mildly increased left atrial size. Thickened mitral valve. Mild mitral annular calcification. Thickened aortic valve. There is no pericardial effusion. There are no intracardiac masses. No similar previous studies are available for comparison Dr Neelima Gutierres MD [facility] (Electronically Signed) Final Date: 16 August 2024 08:58 S
[2024-08-17 02:10] LABS: Glucose Point of Care 114 mg/dL (70-110)
[2024-08-17 03:00] VITALS: BP 195/96; PULSE 81; RESP 19; TEMP 36.7; O2SAT 92
[2024-08-17 06:00] VITALS: PULSE 87
[2024-08-17 06:48] LABS: Basophils # 0.2 10^3/uL (0.0-0.1); Basophils % 1.3 %; Eosinophils # 0.6 10^3/uL (0.0-0.8); Eosinophils % 4.7 %; Lymphocytes # 1.9 10^3/uL (0.8-4.8); Lymphocytes % 15.7 %; Mean Corpuscular HGB Conc 30.3 g/dL (30-55); Mean Corpuscular Hemoglobin 27.7 pg (27-33); Mean Corpuscular Volume 91.5 fl (85-98); Mean Platelet Volume 10.8 fL (7.4-10.4); Monocytes # 0.8 10^3/uL (0.2-0.9); Monocytes % 6.4 %; Neutrophils # 8.46 10^3/uL (1.8-7.7); Neutrophils % 71.6 %; Nucleated Red Blood Cells % 0 %; Platelet Count 340 10^3/cmm (157-399); Red Blood Count 4.37 10^6/uL (3.85-5.65); Red Cell Distribution Width 14.6 % (12.1-15.1); White Blood Count 11.81 10^3/uL (3.29-11.43)
[2024-08-17 07:00] VITALS: BP 177/76; PULSE 82; RESP 16; TEMP 36.8; O2SAT 97
[2024-08-17 07:13] LABS: Alanine Aminotransferase 11 U/L (0-33); Albumin Level 3.7 g/dL (3.5-5.2); Alkaline Phosphatase 46 U/L (35-105); Anion Gap 16.1 (5-19); Aspartate Amino Transferase 17 U/L (0-32); Blood Urea Nitrogen 21 mg/dL (8-23); Calcium 9.4 mg/dL (8.5-10.5); Carbon Dioxide 24 mmol/L (22-29); Chloride 101 mmol/L (98-107); Creatinine Clr Calc Pharmacy 44.8371; Globulin 2.8 g/dL (1.3-4.6); Glucose 211 mg/dL (65-115); Osmolality Calculated 293 mOsm/kg (285-295); Potassium 4.1 mmol/L (3.5-5.1); Sodium 137 mmol/L (136-145); Total Bilirubin 0.2 mg/dL (0.15-1.2); Total Protein 6.5 g/dL (6.6-8.7)
[2024-08-17] MEDS: aspirin 81 mg EC Tablet PO (08:17)
[2024-08-17] MEDS: fenofibrate 145 mg Tablet PO (08:17)
[2024-08-17] MEDS: heparin 5,000 unit/mL INJ 1 mL 5000 UNIT SUBCUT (08:17)
[2024-08-17] MEDS: sodium chloride 0.9% 1,000 ML 75 ML IV (08:18)
[2024-08-17 08:29] LABS: Glucose Point of Care 265 mg/dL (70-110)
[2024-08-17] MEDS: lisinopril 20 mg Tablet PO ×2 (09:23→11:37)
[2024-08-17] MEDS: insulin lispro 100 unit/1 mL SUBCUT (09:23)
[2024-08-17] MEDS: carvedilol 25 mg Tablet PO (09:23)
[2024-08-17] MEDS: insulin glargine 100 units/1 mL 12 UNIT SUBCUT (09:24)
--- NOTE | 2024-08-17 09:34 | PC.CHAP ---
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 [] Patient/Family/Request visit [] Outpatient visit [] Follow-up visit [] Physician referral [] Code/Alert [] Routine visit [] Staff referral [] Actively dying [X] Patient sleeping [] Family support [] [] Out of room [] Palliative care [] [X] Receiving care in room [] Pre-surgical visit [] Trauma [] Long length of stay [] ICU visit [] Other: Relational/Emotional Strength [] Patient feels connected with others/family/visitors/staff [] Distress [] Loneliness/isolation [] Abandonment Spirituality of Patient [] Person of Meaghan [] Attends Uatsdin of their [place]han [] Believes in Prayer [] Reads Bible or Congregation materials [] There are Spiritual issues to be addressed King Maker Interventions [] Prayer [] Active listening [] Non-anxious presence [] Spiritual/emotional support [] Crisis/trauma care [] Spiritual counseling [] Bereavement support [] Provided bereavement packet [] Provided Bible/devotional materials [] Provided toy/stuffed animal, coloring book to patient or family member [] Provided Communion [] Anointing/[place] [] Salvation [] Completed spiritual assessment [] Other: Impact on Illness or Injury [] Angry [] Fearful [] Anxious [] Often cries [] Exhaustion [] Unable to work [] Unable to attend rastafarian [] Unable to walk/stand [] Unable to read [] Unable to drive [] Unable to eat/drink [] Unable to sleep [] Unable to be with family [] Patient intubated [] Other: Summary Staff care, Sleeping Time spent with patient
--- NOTE | 2024-08-17 09:56 | PC.SOCIAL ---
IMM Update pg 2 of IMM Updated and reviewed w/ patient. Copy provided and copy dated, initialed and placed in chart.
--- NOTE | 2024-08-17 10:43 | P.DS_ITS ---
Discharge Providers Date of Admission: 08/15/24 17:19 Date of Discharge: August 17, 2024 Attending Provider at Admission: Hermann Degroot MD Attending Provider at Discharge: Hermann Degroot MD Primary Care Provider: MARKUS Wilson Diagnoses at Discharge Discharge Diagnosis (1) Cerebrovascular accident: Status: Acute (2) Hypertensive urgency: Status: Acute (3) Type 2 diabetes, controlled, with neuropathy: Status: Acute Reason for Visit Reason for Visit: AMS, Stroke alert Hospital Course Hospital Course Ashley Dover is a 83 year old female with past medical history of hypertension, assisted living resident, hyperlipidemia, type 2 diabetes mellitus was sent to the ER today because of possible strokelike symptoms and generalized weakness. As per the documentation from the ER physician she started having word salad which seem to have started yesterday evening around 7 PM. As patient did not improve for most part of the day today she was sent to the ER. On examination patient is awake and alert. She is alert to herself, being in hospital, her address. She states she has been having headache which is more so global on and off for last 2 weeks. Denies any nausea, vomiting. Complaining of weakness more so in her legs. In the ER on presentation she had an NIH scale of 5. Patient was found to be out of the window for tPA after discussion with on-call neurologist there was no concern for embolism neurologist recommended patient to be admitted for further stroke workup. She had systolic blood pressure going up to 220 mmHg and she was given 10 mg of IV labetalol. Medicine was consulted for further evaluation and management. Patient denies any dysuria, diarrhea, nausea, vomiting, dizziness, abdominal pain. Patient was admitted to the hospital for further evaluation and management of possible strokelike symptoms. CT head on admission was negative for acute stroke but is consistent with a moderate to severe stenosis of A1 segment of left anterior cerebral artery. She was seen by various therapy during hospitalization patient did well. During hospitalization her antihypertensives were adjusted. Patient has been able to ambulate well with physical therapy and has been advanced to regular diet. Patient underwent MRI of head with concerns for possible press syndrome versus stroke given uncontrolled hypertension at baseline. She has been discharged back to assisted living in hemodynamically stable condition on adjusted antihypertensive. She is to check her blood pressure daily at home and maintain blood pressure diary and follow-up with a primary care provider for further adjustment of antihypertensives. Physical Exam Narrative: General: No acute distress, AO x 2 to 3, pleasant, occasional episode of confusion, no slurred speech HEENT: PERRLA, pupils bilaterally equal and reactive Chest: Normal vesicular breath sounds, no added sounds, equal good air entry bilaterally CVS: S1-S2 regular, no murmurs, no tachycardia, no gallops, no rubs Abdomen: Soft, nontender, no organomegaly, bowel sounds present Neuro: Power lower limbs left 3/5, right 2/5, upper limb bilaterally 3/5, mild right-sided facial droop Discharge Data Studies Completed and Pending Completed Studies During Hospitalization Category Date Time Status CT angio headneck* [id number] Stat Cat Scan 08/15/24 14:[address] head thrombolytic [id number] Stat Cat Scan 08/15/24 14:41 Completed CV. echo complete* [id number] Routine Ultrasound 08/16/24 20:27 Completed Pending at discharge Category Date Time Status Blood Culture Stat Lab 08/15/24 15:02 Results Radiology Impressions Head CT 08/15/24 14:41 Impression: 1. Negative for hemorrhage or recent infarct. 2. Moderate cerebral atrophy. 3. The report was called to Dr. Tripp in the emergency room at 1450 hours. Head/Neck CTA 08/15/24 14:42 IMPRESSION: 1. No large vessel occlusion. 2. 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 IMPRESSION: Mild stenosis at the origins of the internal carotid arteries. No severe stenosis or occlusion. REFERENCES: NASCET CRITERIA. The degree of stenosis in the cervical segment of the internal carotid artery is based on NASCET criteria. Normal is no stenosis. Mild is less than 50% stenosis. Moderate is 50-69% stenosis. Severe is 70% to 99% stenosis. Total occlusion is no detectable patent lumen. Echocardiogram CONCLUSIONS Moderate concentric left ventricular hypertrophy. LV ejection fraction around 55%. Grade I/IV diastolic dysfunction (abnormal relaxation filling pattern), normal to mildly elevated filling pressures. Mildly increased left atrial size. Thickened mitral valve. Mild mitral annular calcification. Thickened aortic valve. There is no pericardial effusion. There are no intracardiac masses. No similar previous studies are available for comparison Dr Neelima Gutierres MD [facility] (Electronically Signed) Final Date: 16 August 2024 Laboratory Results WBC 11.81 10^3/uL (3.29-11.43) H 08/17/24 06:30 RBC 4.37 10^6/uL (3.85-5.65) 08/17/24 06:30 Hgb 12.10 g/dL (11.27-16.99) 08/17/24 06:30 Hct 40.0 % (36-47) 08/17/24 06:30 MCV 91.5 fl (85-98) 08/17/24 06:30 MCH 27.7 pg (27-33) 08/17/24 06:30 MCHC 30.3 g/dL (30-55) 08/17/24 06:30 RDW 14.6 % (12.1-15.1) 08/17/24 06:30 Plt Count 340 10^3/cmm (157-399) 08/17/24 06:30 MPV 10.8 fL (7.4-10.4) H 08/17/24 06:30 Neut % (Auto) 71.6 % 08/17/24 06:30 Lymph % (Auto) 15.7 % 08/17/24 06:30 [place] % (Auto) 6.4 % 08/17/24 06:30 Eos % (Auto) 4.7 % 08/17/24 06:30 Baso % (Auto) 1.3 % 08/17/24 06:30 Neut # (Auto) 8.46 10^3/uL (1.8-7.7) H 08/17/24 06:30 Lymph # (Auto) 1.9 10^3/uL (0.8-4.8) 08/17/24 06:30 [place] # (Auto) 0.8 10^3/uL (0.2-0.9) 08/17/24 06:30 Eos # (Auto) 0.6 10^3/uL (0.0-0.8) 08/17/24 06:30 Baso # (Auto) 0.2 10^3/uL (0.0-0.1) H 08/17/24 06:30 Nucleated RBC % (auto) 0 % 08/17/24 06:30 Nucleated RBCs # 0.0 /100WBC 08/17/24 06:30 PT 14.30 SECONDS (12.1-14.9) 08/15/24 15:00 INR 1.07 (0.8-1.2) 08/15/24 15:00 APTT 26.3 SECONDS (23.9-36.7) 08/15/24 15:00 Sodium 137 mmol/L (136-145) 08/17/24 06:30 Potassium 4.1 mmol/L (3.5-5.1) 08/17/24 06:30 Chloride 101 mmol/L (98-107) 08/17/24 06:30 Carbon Dioxide 24 mmol/L (22-29) 08/17/24 06:30 Anion Gap 16.1 (5-19) 08/17/24 06:30 BUN 21 mg/dL (8-23) 08/17/24 06:30 Creatinine 1.0 mg/dL (0.5-0.9) H 08/17/24 06:30 GFR Calculation Not Reportable 08/17/24 06:30 Glucose 211 mg/dL (65-115) H 08/17/24 06:30 POC Glucose 265 mg/dL (70-110) H 08/17/24 08:26 Estimat Average Glucose 174 08/16/24 04:35 Hemoglobin A1c 7.7 % (4.0-6.0) H 08/16/24 04:35 Calculated Osmolality 293 mOsm/kg (285-295) 08/17/24 06:30 Lactic Acid 1.6 mmol/L (0.5-2.2) 08/15/24 15:00 Calcium 9.4 mg/dL (8.5-10.5) 08/17/24 06:30 Phosphorus 3.5 mg/dL (2.5-4.5) 08/16/24 04:35 Magnesium 1.8 mg/dL (1.7-2.3) 08/16/24 04:35 Total Bilirubin 0.2 mg/dL (0.15-1.2) 08/17/24 06:30 AST 17 U/L (0-32) 08/17/24 06:30 ALT 11 U/L (0-33) 08/17/24 06:30 Alkaline Phosphatase 46 U/L (35-105) 08/17/24 06:30 Creatine Kinase 41 U/L (26-192) 08/15/24 15:00 Total Protein 6.5 g/dL (6.6-8.7) L 08/17/24 06:30 Albumin 3.7 g/dL (3.5-5.2) 08/17/24 06:30 Globulin 2.8 g/dL (1.3-4.6) 08/17/24 06:30 Triglycerides 294 mg/dL (0-150) H 08/16/24 04:35 Cholesterol 163 mg/dL (0-200) 08/16/24 04:35 LDL Cholesterol, Calc 73 mg/dL (50-129) 08/16/24 04:35 HDL Cholesterol 31 mg/dL (60-100) L 08/16/24 04:35 LDL/HDL Ratio 2.35 RATIO (0.00-3.22) 08/16/24 04:35 Cholesterol/HDL Ratio 5.26 mg/dL (0.0-4.40) H 08/16/24 04:35 Procalcitonin 0.05 ng/mL (0-0.5) 08/16/24 04:35 TSH 2.07 uIU/mL (0.27-4.20) 08/15/24 15:00 Urine Color Yellow (Yellow) 08/15/24 15:47 Urine Appearance Clear (CLEAR) 08/15/24 15:47 Urine pH 6.5 (5-7) 08/15/24 15:47 Ur Specific [place] 1.045 (1.005-1.030) H 08/15/24 15:47 Urine Protein 2+ (Negative) A 08/15/24 15:47 Urine Glucose (UA) Negative (Normal) 08/15/24 15:47 Urine Ketones Negative (Negative) 08/15/24 15:47 Urine Blood Negative (Negative) 08/15/24 15:47 Urine Nitrate Negative (Negative) 08/15/24 15:47 Urine Bilirubin Negative (Negative) 08/15/24 15:47 Urine Urobilinogen 0.2 mg/dL (Negative) 08/15/24 15:47 Ur Leukocyte Esterase Negative (Negative) 08/15/24 15:47 Urine RBC 0-2 /hpf (0-2) 08/15/24 15:47 Urine WBC 6-10 /hpf (0-5) 08/15/24 15:47 Ur Squamous Epith Cells 0-5 /hpf (0-5) 08/15/24 15:47 Amorphous Sediment Not Reportable 08/15/24 15:47 Urine Bacteria None seen /hpf (NONE) 08/15/24 15:47 Hyaline Casts 21.92 /lpf 08/15/24 15:47 Urine Opiates Screen Negative ng/mL (Negative) 08/15/24 15:47 Ur Barbiturates Screen Negative ng/mL (Negative) 08/15/24 15:47 Ur Phencyclidine Scrn Negative ng/mL (Negative) 08/15/24 15:47 Ur Amphetamines Screen Negative ng/mL (Negative) 08/15/24 15:47 U Benzodiazepines Scrn Negative ng/mL (Negative) 08/15/24 15:47 Urine Cocaine Screen Negative ng/mL (Negative) 08/15/24 15:47 U Marijuana (THC) Screen Negative ng/mL (Negative) 08/15/24 15:47 Coronavirus (PCR) Negative (Negative) 08/15/24 15:36 Influenza A (PCR) Negative (Negative) 08/15/24 15:36 Influenza Type B (PCR) Negative (Negative) 08/15/24 15:36 RSV (PCR) Negative (Negative) 08/15/24 15:36 Vitals Last Vital Signs Temp 98.2 F 08/17/24 07:00 Pulse 82 08/17/24 07:00 Resp 16 08/17/24 07:00 BP 177/76 08/17/24 07:00 Pulse Ox 97 08/17/24 07:00 O2 Del Method Room Air 08/17/24 07:00 O2 Flow Rate 2 08/15/24 21:16 Discharge Plan Discharge Patient Disposition: Home Condition: Stable Prescriptions: New aspirin 81 mg Tablet,Delayed Release (Dr/Ec) 81 mg PO DAILY Qty: 30 0RF amlodipine 10 mg Tablet 10 mg PO DAILY Qty: 30 0RF Continued cholecalciferol (vitamin D3) 2,000 unit tablet 4,000 unit PO QPM cyclobenzaprine 10 mg tablet 10 mg PO TID PRN (Reason: muscle spasm) lidocaine 5 % cream 1 applic TOPICAL TID PRN (Reason: Pain) magnesium oxide 400 mg magnesium capsule 400 mg PO DAILY multivitamin Tablet 1 tab PO QAM omeprazole 20 mg capsule,delayed release(DR/EC) 20 mg PO QAM peg 400-propylene glycol 0.4-0.3 % drops 1 drop ophthalmic (eye) BID (DME) pen needle, diabetic [BD Serena 2nd Gen Pen Needle] 32 gauge x /32 needle See Rx Instructions .Route Qty: 300 3RF Rx Instructions: As directed sitagliptin phosphate 100 mg tablet 100 mg PO QAM duloxetine 60 mg capsule,delayed release(DR/EC) 60 mg PO QPM betamethasone dipropionate 0.05 % cream 1 applic topical BID PRN (Reason: Skin Irritation) (DME) Diabetic Shoes with 3 pairs of inserts and 2 pairs of ROMAN Hose See Rx Instructions .Route .MEDSUPPLY Qty: 1 0RF Rx Instructions: As directed by [facility] fenofibrate nanocrystallized 145 mg tablet 145 mg PO DAILY 90 Days Qty: 90 0RF (DME) Modifications with shoe gear to stay away from surgery (Offloading) See Rx Instructions .Route .MEDSUPPLY Qty: 1 0RF Rx Instructions: As directed [facility]- A Hole needs to be cut in the seam of shoe where it lines with the Left 4th metatarsal knuckle. (DME) Diabetic Shoes with 3 Pairs of Custom Orthotics See Rx Instructions .Route .MEDSUPPLY Qty: 1 0RF Rx Instructions: As directed (DME) Compression stockings bilaterally See Rx Instructions .Route .MEDSUPPLY Qty: 3 0RF Rx Instructions: As directed by [facility] Measurements are as followed Right ankle 23 cm Right calf 32.5 cm Left ankle 22 cm Left calf-32 cm atorvastatin 40 mg tablet 40 mg PO DAILY acetaminophen 500 mg Tablet 1,000 mg PO Q4H PRN (Reason: pain/fever) methenamine hippurate 1 gram Tablet 1 g PO BID metformin 1,000 mg Tablet 500 mg PO BID lidocaine 5 % Adhesive Patch,Medicated 1 - 2 patch TOPICAL DAILY PRN (Reason: Pain) Rx Instructions: leave on most painful area for up to 12 hrs vitamin B complex Tablet 1 tab PO QAM nystatin 100,000 unit/gram Powder 1 applic TOPICAL BID polyethylene glycol 3350 [Miralax] 17 gram/dose Powder 17 g PO .DAILY IN 8 OZ H2O Analgesic [place] (mJosselynsalic-menth) 15-10 % Cream 1 applic TOPICAL DAILY PRN (Reason: Back Pain) Eucerin Cream 1 applic TOPICAL BEDTIME Preparation H 0.25-14-74.9 % Ointment 1 applic AR . UP TO QID PRN (Reason: Hemorrhoids) PreserVision AREDS-2 250-90-40-1 mg Capsule 1 tab PO BID insulin degludec [Tresiba FlexTouch U-100] 100 unit/mL (3 mL) insulin pen 24 unit SUBCUT BID Changed carvedilol 25 mg tablet 25 mg PO BID Qty: 60 0RF lisinopril 20 mg Tablet 40 mg PO DAILY Qty: 60 0RF Discontinued meloxicam 15 mg Tablet 15 mg PO QAM Discharge Orders: Discharge Order (Routine); Ordered 08/17/24 Ordered By: Hermann Degroot Referrals: Rae Quarles MD [Physician] - 2 weeks Linda Bae FNP [Primary Care Provider] - 2 weeks Discharge Diet: Cardiac and Diabetic Discharge Activity: Resume usual activity and Increase activity as tolerated Patient Instructions: Opioid Safety Activity Restrictions/Additional Instructions: Check blood pressure daily at home maintain a blood pressure diary. Goal blood pressure less than 140/90 mmHg. Coreg has been changed to 25 mg twice daily, lisinopril has been changed to 40 mg oral daily. Amlodipine 10 mg over Lasilactone nightly medication list. Follow-up with a primary care provider within next 2 weeks for further adjustment of antihypertensive as per goal blood pressures. Discharge Attestations Time Spent in Discharge Care*: greater than 30 min Specific Discharge Activities: educating patient, educating and/or supporting family/caregiver, discussing with pcp/other providers, discussing with bottle caser/social workers/dc planners, documenting/other paperwork and evaluating patient/reviewing data Status at Discharge: Cognitive status at discharge: mildly impaired cognition , Behavioral status at discharge: cooperative and can be uncooperative , Functional status at discharge: uses cane/walker , Overall status at discharge: patient is back to baseline Quality Metrics Clinical Quality Measures [ No reported AMI, CVA or VTE this stay] Coding Level of Care Code 38067 Total time (in minutes) for Discharge: 60 Diagnoses Cerebrovascular accident I63.9 Hypertensive urgency I16.0 Type 2 diabetes, controlled, with neuropathy E11.40
[2024-08-17] MEDS: amlodipine 10 mg Tablet PO (11:37)
[2024-08-17 11:38] VITALS: BP 185/79
--- NOTE | 2024-08-17 12:18 | MR_ITS ---
WS: [id number] MRI BRAIN WITHOUT CONTRAST HISTORY: concern for press syndrome COMPARISON: 10/23/2010 TECHNIQUE: Diffusion imaging, multiplanar T1, T2 and FLAIR imaging obtained. No evidence for acute infarct or hemorrhage. Eddy-white matter differentiation is normal. Symmetric atrophy and volume loss. Progression of periventricular and subcortical white matter small vessel disease since 2010. No large territory infarct. No cerebellar infarct. Ventricles and extra-axial spaces are normal. No inferior displacement of cerebellar tonsils. The sella turcica and pituitary gland are unremarkabl e. Dural venous sinuses and [place] of Elias demonstrate no abnormality on this unenhanced studies. Paranasal sinuses: Clear. Mastoid air cells: Normal. Calvarium and scalp: Intact. MR/MR head wo con* [id number] IMPRESSION: 1. No acute infarct. Diffusion imaging is normal. 2. Mild progression of small vessel disease since 2010. 3. No large infarcts. 4. No edema in the posterior fossa or occipital lobes.
[2024-08-17 13:31] VITALS: BP 185/79; PULSE 82; RESP 16; TEMP 36.8; O2SAT 97
== END 2024-08-17 15:29 | disposition intermediate care facility (04) | DRG 65 ==
LOC: ER 16:24 → ER IP 17:20 → MEDSURG 19:44
PROVIDERS: Admitting Provider Student in an Organized Health Care Education/Training Program; Emergency Provider Family Medicine; PCP Nurse Practitioner; Visit Provider Student in an Organized Health Care Education/Training Program
DX: I63.529 Cerebral infarction due to unspecified occlusion or stenosis of unspecified anterior cerebral artery (principal); M50.020 Cervical disc disorder with myelopathy, mid-cervical region, unspecified level; R47.89 Other speech disturbances; E78.5 Hyperlipidemia, unspecified; E11.40 Type 2 diabetes mellitus with diabetic neuropathy, unspecified; E11.22 Type 2 diabetes mellitus with diabetic chronic kidney disease; I12.9 Hypertensive chronic kidney disease with stage 1 through stage 4 chronic kidney disease, or unspecified chronic kidney disease; N18.9 Chronic kidney disease, unspecified; M48.02 Spinal stenosis, cervical region; I16.0 Hypertensive urgency; Z66 Do not resuscitate; Z79.84 Long term (current) use of oral hypoglycemic drugs; Z79.4 Long term (current) use of insulin; Z88.5 Allergy status to narcotic agent; Z90.49 Acquired absence of other specified parts of digestive tract; Z82.49 Family history of ischemic heart disease and other diseases of the circulatory system; Z80.9 Family history of malignant neoplasm, unspecified
CPT/HCPCS: 36415; 36416; 70450; 70496; 70498; 70551; 80053; 80061; 80306; 81001; 82550; 82962; 83036; 83605; 83735; 84100; 84145; 84443; 85025; 85610; 85730; 87040; 87637; 92507; 92523; 92610; 93005; 93306; 94664; 96372; 96374; 97116; 97161; 97165; 99285; J1644; J1815; J2470; J3490; J7030

== ENCOUNTER → 2024-09-24 08:30 | Outpatient (BNVA) | payer OTHER, SELFPAY | PROVIDERS: PCP Nurse Practitioner; Visit Provider Podiatrist Foot & Ankle Surgery | DX: E11.8 Type 2 diabetes mellitus with unspecified complications (principal); E11.40 Type 2 diabetes mellitus with diabetic neuropathy, unspecified; I73.9 Peripheral vascular disease, unspecified; L97.522 Non-pressure chronic ulcer of other part of left foot with fat layer exposed; M24.575 Contracture, left foot; M20.12 Hallux valgus (acquired), left foot; M79.672 Pain in left foot; E11.621 Type 2 diabetes mellitus with foot ulcer; Z79.4 Long term (current) use of insulin; Z79.84 Long term (current) use of oral hypoglycemic drugs | CPT/HCPCS: 11042; 99214 ==

== ENCOUNTER 2024-10-11 10:25 | Outpatient (CLI) | payer OTHER, SELFPAY ==
--- NOTE | 2024-10-11 10:37 | USR_ITS ---
PROCEDURE INFORMATION: Exam: US Non-Invasive Physiologic Bilateral Lower Extremities Arteries, Complete Exam date and time: 10/11/2024 12:02 PM Age: 83 years old Clinical indication: Pain; Leg, lower; Bilateral; Additional info: I73.9 - peripheral vascular disease, unspecified, please preform: Bilateral lower extremity james/tbi's with US atrial TECHNIQUE: Imaging protocol: Complete bilateral noninvasive physiologic studies of lower extremity arteries, 3 or more levels or single level study with provocative functional maneuvers. Waveforms were obtained and evaluated. Images were documented and archived. Exam is complete. COMPARISON: [place] [id number] ORTH 03/18/2023 10:51 AM FINDINGS: Right brachial pressure 154 Right thigh 168-1.09 Right calf 167-1.08 Right PT 167-1.08 Right DP 170-1.10 Right digit 132-0.86 Left brachial pressure 150 Left thigh when 65-1.07 Left calf 171-1.11 Left PT 161-1.05 Left DP 1731.12 Left digit 1530.99 US/[place] [id number] IMPRESSION: No evidence of stenosis or occlusion in the lower extremity.
== END 2024-10-11 10:26 | disposition home or self-care (01) ==
LOC: RAD 10:26
PROVIDERS: PCP Nurse Practitioner; Visit Provider Podiatrist Foot & Ankle Surgery
DX: I73.9 Peripheral vascular disease, unspecified (principal); Z01.818 Encounter for other preprocedural examination
CPT/HCPCS: 93923

== ENCOUNTER → 2024-11-07 14:55 | Outpatient (BNVA) | payer OTHER, SELFPAY | PROVIDERS: PCP Nurse Practitioner; Referring Provider Nurse Practitioner; Visit Provider Specialist | DX: Z09 Encounter for follow-up examination after completed treatment for conditions other than malignant neoplasm (principal); G45.9 Transient cerebral ischemic attack, unspecified; I66.19 Occlusion and stenosis of unspecified anterior cerebral artery; F43.10 Post-traumatic stress disorder, unspecified | CPT/HCPCS: 99204 ==

== ENCOUNTER → 2024-11-14 14:07 | Outpatient (BNVA) | payer OTHER, SELFPAY | PROVIDERS: PCP Nurse Practitioner; Visit Provider Podiatrist Foot & Ankle Surgery | DX: L97.522 Non-pressure chronic ulcer of other part of left foot with fat layer exposed (principal) | CPT/HCPCS: 87070; 87075; 87205 ==

== ENCOUNTER 2024-11-14 15:20 | Outpatient (CLI) | payer OTHER, SELFPAY | END 2024-11-14 15:21 | disposition home or self-care (01) | LOC: SPT 15:20 | PROVIDERS: PCP Nurse Practitioner; Visit Provider Podiatrist Foot & Ankle Surgery | DX: Z46.89 Encounter for fitting and adjustment of other specified devices (principal); L97.522 Non-pressure chronic ulcer of other part of left foot with fat layer exposed | CPT/HCPCS: 97760; L4361 ==

== ENCOUNTER → 2024-11-29 10:41 | Outpatient (BNVA) | payer OTHER, SELFPAY | PROVIDERS: PCP Nurse Practitioner; Visit Provider Podiatrist Foot & Ankle Surgery | DX: E11.621 Type 2 diabetes mellitus with foot ulcer (principal); L97.522 Non-pressure chronic ulcer of other part of left foot with fat layer exposed; E11.40 Type 2 diabetes mellitus with diabetic neuropathy, unspecified; I73.9 Peripheral vascular disease, unspecified; M24.575 Contracture, left foot; M20.12 Hallux valgus (acquired), left foot; M79.672 Pain in left foot; E11.8 Type 2 diabetes mellitus with unspecified complications; Z79.84 Long term (current) use of oral hypoglycemic drugs; Z79.4 Long term (current) use of insulin | CPT/HCPCS: 99213 ==

== ENCOUNTER → 2024-12-27 10:45 | Outpatient (BNVA) | payer OTHER, SELFPAY | PROVIDERS: PCP Nurse Practitioner; Visit Provider Podiatrist Foot & Ankle Surgery | DX: E11.621 Type 2 diabetes mellitus with foot ulcer (principal); L97.522 Non-pressure chronic ulcer of other part of left foot with fat layer exposed; E11.40 Type 2 diabetes mellitus with diabetic neuropathy, unspecified; I73.9 Peripheral vascular disease, unspecified; M24.575 Contracture, left foot; M20.12 Hallux valgus (acquired), left foot; M79.672 Pain in left foot; E11.8 Type 2 diabetes mellitus with unspecified complications; Z79.84 Long term (current) use of oral hypoglycemic drugs; Z79.4 Long term (current) use of insulin | CPT/HCPCS: 99214 ==

== ENCOUNTER → 2025-01-01 10:13 | Outpatient (BNVA) | payer OTHER, SELFPAY | PROVIDERS: PCP Nurse Practitioner; Visit Provider Internal Medicine | DX: E11.40 Type 2 diabetes mellitus with diabetic neuropathy, unspecified (principal); R68.89 Other general symptoms and signs; E11.69 Type 2 diabetes mellitus with other specified complication; E78.2 Mixed hyperlipidemia | CPT/HCPCS: 99214 ==

== ENCOUNTER 2025-01-11 05:43 | Day surgery (SDC) | payer OTHER, SELFPAY ==
[2025-01-11] VITALS (7 sets, daily range): BP systolic 132–166; BP diastolic 66–77; PULSE 67–81; RESP 14–18; TEMP 36.3–36.6; O2SAT 92–97; BMI 32.8
[2025-01-11 06:12] LABS: Glucose Point of Care 128 mg/dL (70-110)
--- NOTE | 2025-01-11 06:18 | ANES.PREANE2 ---
Pre-Anesthetic Assessment Height/Weight: Height 5 ft 6 in Weight 203 lb Temp Pulse Resp BP Pulse Ox O2 Del Method 97.3 F L 81 18 166/77 97 Room Air 01/11/25 05:48 01/11/25 05:48 01/11/25 05:48 01/11/25 05:48 01/11/25 05:48 01/11/25 06:03 Preop Diagnosis: Extensor tendon injury of left foot Operation Date: 01/11/25 07:00 Proposed Procedures p Hallux Interphalangeal Joint Fusion(Left) - Luis Lucero DPM s Extensor Tendon Transfer Foot(Left) - Lusi Lucero DPM Was Beta Aleah taken within 24 hours: Yes Was Clonidine taken within 24 hours: N/A Last intake: Intake Last Liquid Date 01/10/25 Last Liquid Time 11:00 Last Solid Date 01/10/25 Last Solid Time 22:00 Social No alcohol and No tobacco Exam alert, oriented x 3, clear to auscultation bilaterally and regular rate & rhythm Airway Cervical ROM: within normal limits Mallampati: Class III Dentition: full Comments: Comments: Smaller mouth opening Anesthetic Plan ASA status: 3 Anesthesia: General and Regional (specify below) Other: No prior issues with anesthesia NPO since yesterday evening History of hypertension on amlodipine and carvedilol Insulin-dependent DM, preop BS 128 GERD, controlled with omeprazole History of PTSD TIA in July, no residual symptoms Prior documented cervical stenosis but patient states that she does not have a bunch of neck pain and has decent ROM Plan for general anesthesia with LMA and possible peripheral nerve block Medications/Allergies Home Medications ?Medication ?Instructions ?Recorded ?Confirmed ?Last Taken ?Type cholecalciferol (vitamin D3) 50 4,000 unit PO QPM 10/05/19 01/10/25 01/10/25 History mcg (2,000 unit) tablet cyclobenzaprine 10 mg tablet 10 mg PO TID PRN muscle spasm 10/05/19 01/10/25 08/14/24 History lidocaine 5 % topical cream 1 applic topical TID PRN Pain 10/05/19 01/10/25 07/13/24 History magnesium oxide 400 mg PO DAILY 10/05/19 01/10/25 01/10/25 History multivitamin 1 tab PO QAM 10/05/19 01/10/25 01/10/25 History omeprazole 20 mg capsule,delayed 20 mg PO QAM 10/05/19 01/10/25 01/10/25 History release peg 400-propylene glycol 0.4 %-0.3 1 drop ophthalmic (eye) BID 10/05/19 01/10/25 08/15/24 History % eye drops pen needle, diabetic 32 gauge x #300 ea 10/28/21 12/27/24 Unknown Rx (BD Serena 2nd Gen Pen Needle) Diabetic Shoes with 3 pairs of #1 ea 06/08/22 12/27/24 Unknown Rx inserts and 2 pairs of ROMAN Hose fenofibrate nanocrystallized 145 145 mg PO DAILY 90 days #90 tabs 12/02/22 01/10/25 01/10/25 Rx mg tablet Modifications with shoe gear to #1 ea 03/21/23 12/27/24 Unknown Rx stay away from surgery (Offloading) betamethasone dipropionate 0.05 % 1 applic topical BID PRN Skin 04/20/23 01/10/25 08/07/24 History topical cream Irritation duloxetine 60 mg capsule,delayed 60 mg PO QPM 04/20/23 01/10/25 01/10/25 History release sitagliptin phosphate 100 mg tablet 100 mg PO QAM 04/20/23 01/10/25 01/10/25 History Compression stockings bilaterally #3 ea 02/23/24 12/27/24 Unknown Rx Diabetic Shoes with 3 Pairs of #1 ea 02/23/24 12/27/24 Unknown Rx Custom Orthotics acetaminophen 500 mg tablet 1,000 mg PO Q4H PRN pain/fever 08/15/24 01/10/25 08/15/24 History atorvastatin 40 mg tablet 40 mg PO DAILY 08/15/24 01/10/25 01/10/25 History lanolin alcohols-mineral 1 applic topical BEDTIME 08/15/24 01/10/25 08/14/24 History oil-w.petrolatum-ceresin topical cream (Eucerin topical cream) lidocaine 5 % topical patch 1 - 2 patch topical DAILY PRN Pain 08/15/24 01/10/25 07/13/24 History metformin 1,000 mg tablet 1,000 mg PO BID 08/15/24 01/10/25 01/10/25 History methenamine hippurate 1 gram tablet 1 g PO BID 08/15/24 01/10/25 01/10/25 History methyl salicylate 15 %-menthol 10 1 applic topical DAILY PRN Back 08/15/24 01/10/25 Unknown History % topical cream (Analgesic [place] [facility] (m.salic-menthol)) nystatin 100,000 unit/gram topical 1 applic topical BID 08/15/24 01/10/25 08/15/24 History powder phenylephrine 0.25 %-mineral oil 1 applic [place] . UP TO QID PRN 08/15/24 01/10/25 Unknown History 14 %-petrolatm 74.9 % rectal Hemorrhoids ointment (Preparation H) polyethylene glycol 3350 17 17 g PO .DAILY IN 8 OZ H2O 08/15/24 01/10/25 01/10/25 History gram/dose oral powder (Miralax) vit C 250 mg-vit E 90 mg-zinc 40 1 tab PO BID 08/15/24 01/10/25 01/10/25 History mg-copper 1 [id number] capsule (PreserVision AREDS-2) vitamin B complex 1 tab PO QAM 08/15/24 01/10/25 01/10/25 History amlodipine 10 mg tablet 10 mg PO DAILY #30 tabs 08/17/24 01/10/25 01/10/25 Rx aspirin 81 mg tablet,delayed 81 mg PO DAILY #30 tabs 08/17/24 01/10/25 01/10/25 Rx release carvedilol 25 mg tablet 25 mg PO BID #60 tabs 08/17/24 01/10/25 01/10/25 Rx lisinopril 20 mg tablet 40 mg (2 x 20 mg) PO DAILY #60 tabs 08/17/24 01/10/25 01/10/25 Rx CAM walker #1 ea 11/14/24 12/27/24 Unknown Rx insulin degludec 100 unit/mL 24 unit SUBCUT BID 01/10/25 01/10/25 01/10/25 History subcutaneous solution (Tresiba U-100 Insulin) Allergies Allergy/AdvReac Type Severity Reaction Status Date / Time acetaminophen (From Percocet) Allergy Unknown Verified 12/31/24 15:54 benztropine (From Cogentin) Allergy had Verified 12/31/24 15:54 reaction with other medication, haldol codeine Allergy Unknown Verified 12/31/24 15:54 hydrocodone (From Vicodin) Allergy Unknown Verified 12/31/24 15:54 hydroxyzine (From Vistaril) Allergy Unknown Verified 12/31/24 15:54 levothyroxine sodium (From Allergy unknown Verified 12/31/24 15:54 Synthroid) montelukast (From Singulair) Allergy Unknown Verified 12/31/24 15:54 olanzapine (From Zyprexa) Allergy Unknown Verified 12/31/24 15:54 oxycodone (From Percocet) Allergy Unknown Verified 12/31/24 15:54 quetiapine (From Seroquel) Allergy Unknown Verified 12/31/24 15:54 risperidone (From Risperdal) Allergy Unknown Verified 12/31/24 15:54 topiramate (From Topamax) Allergy Unknown Verified 12/31/24 15:54 eszopiclone (From Lunesta) AdvReac kept awake Verified 12/31/24 15:54 fluoxetine (From Prozac) AdvReac wasn't Verified 12/31/24 15:54 able to eat, nauseated haloperidol (From Haldol) AdvReac confused, Verified 12/31/24 15:54 pt stated made [facility] Anesthesia Medical History Type 2 diabetes mellitus 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
--- NOTE | 2025-01-11 06:23 | W.PM.OPSUD ---
Surgery/Procedure H&P Update DATE OF PROCEDURE: January 11, 2025 DATE H&P PERFORMED: 12/05/24 H&P UPDATE INFORMATION: I have reviewed H&P completed within last 30 days, I have examined patient prior to procedure, No changes to prior documentation and Risks and benefits of the procedure reviewed PREOP DIAGNOSIS: Extensor tendon injury of left foot PLANNED PROCEDURE: Operation Date: 01/11/25 07:00 Proposed Procedures p Hallux Interphalangeal Joint Fusion(Left) - Luis Lucero DPM s Extensor Tendon Transfer Foot(Left) - Luis Lucero DPM
--- NOTE | 2025-01-11 06:23 | PM.OP ---
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 CPT code 09643 2) extensor tendon transfer left foot. CPT code 60661 Implants: [place] 4.0 mm headless screw partially-threaded, cannulated, 32 mm in length [place] 3.0 mm titanium bone anchor Strip Stamp Straightener 3-0 Vicryl 4 nylon Specimens removed/disposition: No specimens removed Surgeon: Luis Lucero DPM Parts Lister: Dylan Estimated blood loss: 2 37 IV fluids: See intraoperative documentation Urine output: no urine output Complications: No complications Brief History: X-ray on file left foot 3 views shows hallux interphalangeal joint angle of 60 degrees and valgus position left foot. 84-year-old female with a history of a chronic wound on the toe and diabetes management, presenting for follow-up. The patient's wound is nearly healed, showing good progress with current treatment. Use of a boot has contributed positively to the healing process. No current signs of infection are noted. Diabetes management continues to be crucial in surgical preparation, with an assessment in place for surgical clearance. 1. Diabetes Management Maintain regulated A1c levels and diabetes management. Preoperative risk assessment is planned for surgical consideration. 2. Chronic Wound On Toe Continue current treatment with hydrophilic therapy and protective boot use. Follow up in three to four weeks to evaluate progress. 3. Risk Of Infection Current protocols are effective; continue monitoring for signs of infection. - Continue using the protective boot and hydrophilic therapy as directed. - Monitor the wound for any signs of infection, such as increased redness, swelling, or discharge. - Keep diabetes under control by adhering to your prescribed medications and regularly checking blood sugar levels. - Attend any scheduled appointments for follow-up and preoperative assessments. The focus is on ensuring the patient's chronic toe wound continues to heal effectively with the current home-based hydrophilic therapy and boot application. As the patient's wound shows near complete healing, and infection risk is minimized, efforts must also concentrate on optimizing her diabetes management, especially to regulate her A1c levels ahead of any surgical intervention. The potential surgery involves preoperative risk assessments to evaluate the patient's readiness, with outcomes expected to include an improvement in toe alignment and functionality. A close follow-up and careful monitoring are essential to maintain the observed positive outcomes and address any evolving needs. I reviewed at length with the patient, the risks, potential complications, benefits, alternatives, expectations, and typical outcomes associated with the surgery. The risks and potential complications were explained in detail, including but not limited to infection, wound dehiscence or soft tissue complications, bleeding and hematoma, chronic edema, neuritis or nerve damage producing numbness or chronic pain, CRPS, failure to relieve pain or worsening pain, thick / painful / unsightly scar, limited motion / stiffness, malposition, delayed union, malunion, or nonunion, fracture, reaction to implants, anesthetic complications, venous thromboembolism, and deformity recurrence. I discussed the notion of no regrets with the patient as it pertains to complications and outcomes. The patient seemed to understand the nature of the proposed care and required convalescence. They asked appropriate questions, answered to their satisfaction. They are aware no guarantees can be made as to a satisfactory outcome and they understand there may be other possible unforeseen complications or outcomes not listed here that will be treated accordingly if they arise. There were no written or implied guarantees given to the patient. They gave informed consent to proceed. Procedure: Under mild sedation the patient was brought to the operating room and remained on the gurney in supine position. A timeout was performed. Anesthesia was then administered by the anesthesia service. Local anesthesia injected by myself in a left Prince block fashion. Well-padded pneumatic tourniquet of applied to the left ankle. The left lower extremity was scrubbed, prepped and draped utilizing normal aseptic technique. Left foot was exsanguinated with an Esmarch bandage and tourniquet inflated to 250 mmHg. Attention was directed to the left hallux which was noted to be in valgus position with instability and left foot contracture of the flexor and extensor tendons. A linear incision was performed directly over previous cicatrix at the dorsal aspect of the left hallux through skin with dissection carried down through subcutaneous tissue to the layer of joint capsule of the hallux interphalangeal joint utilizing a combination of sharp and blunt technique. Care was taken to retract and preserve neurovascular and tendinous structures. All bleeders were ligated and cauterized as necessary. Fibrous nonunion was was resected at the hallux interphalangeal joint, osteotomies performed for correction of the hallux valgus at the head of the proximal phalanx to the lateral rectus reduction, the incision was irrigated with saline solution followed by fenestrating of the arthrodesis site and fixation utilizing standard AO technique with a [place] 4 mm headless screw with excellent bony apposition and correct pression noted at the arthrodesis site this was placed utilizing intramedullary placement with slight valgus and care taken to not violate the metatarsal phalangeal joint this was with direct visitation as well with intraoperative mini C arm in the AP oblique and lateral views noted be excellent without violating the metatarsal phalangeal joint. Excellent bony apposition and compression noted at the arthrodesis site at the hallux interphalangeal joint. The incision was irrigated with copious amounts of sterile saline solution and the extensor hallucis longus tendon was reapproximated with 4-0 Vicryl, subcutaneous tissue reapproximated with 4-0 Vicryl and skin with 4-0 nylon. Attention was directed to the contracture of the left foot where the deep flexor hallucis longus tendon was transferred to the first metatarsal neck this was done with a linear incision directly over the first metatarsal neck of the left foot through skin with dissection carried down through subcutaneous tissue to layer periosteum, the flexor hallucis longus tendon was fixated to the dorsal aspect of the left first metatarsal neck with a [place] titanium 3 mm Strip Stamp Straightener anchor with excellent bony apposition and compression noted and successful transfer and reduction of the forefoot contracture in the sagittal plane. The incision was irrigated saline solution and closed with 4-0 nylon the skin. The incisions were dressed with Xeroform, sterile 4 x 4 gauze, Kerlix and Prakash wrap followed by application of a cam boot to the left foot. Patient tolerated the procedure and anesthesia well and was transferred to the PACU with vital signs stable and vascular status intact. Following a period of postoperative monitoring she will be discharged home without home care instructions and scheduled follow-up.
[2025-01-11] MEDS: ceFAZolin 2,000 mg SDV 2000 MG IVP (07:15)
[2025-01-11] MEDS: BUPivacaine 0.5% INJ 10 mL 15 ML INJECTION (07:25)
[2025-01-11] MEDS: lidocaine 1% 10 ML INJ 15 ML XX (07:25)
--- NOTE | 2025-01-11 07:59 | W.PM.BPON ---
Date of Procedure: 11/11/23 Surgeon: Luis Lucero DPM Instructor Tap Dancing(s): Dylan Procedure(s) performed: Deep tendon transfer left foot. Left hallux interphalangeal joint arthrodesis. Findings of the procedure(s): None Estimated blood loss: 2 mL Specimen(s) removed: No specimens Post-operative diagnosis: Left hallux valgus and left foot contracture. Patient had a local MAC, gurney, supine, tourniquet time was 37 minutes, no complications during surgery or anesthesia.
--- NOTE | 2025-01-11 09:30 | ANE.PACU2 ---
Inpatient post-anesthesia follow up: Airway intact: Yes Vital signs: Temperature 97.8 F Pulse Rate 67 Respiratory Rate 17 Blood Pressure 157/73 Pulse Oximetry 94 Oxygen Delivery Me thod Room Air Oxygen Flow Rate Fraction of Inspir ed Oxygen Hydration adequate: Yes Nausea and vomiting: No Pain level: 1 Mental status: Baseline
[2025-01-11] MEDS: sodium chloride 0.9% 1,000 ML 30 ML IV (09:57)
--- NOTE | 2025-01-15 10:20 | XR_ITS ---
WS: [id number] Left foot, C-arm fluoroscopy views, 01/11/2025 Clinical Data: OR PIC, JOINT FUSION Comparison: Bilateral feet, 03/18/2023 Findings: Dr. Lucero fused the left first toe with a longitudinal orthopedic screw. XR/XR foot LT 2V [id number] Impression: Fusion left first toe.
== END 2025-01-11 09:30 | disposition home or self-care (01) ==
PROVIDERS: PCP Nurse Practitioner; Visit Provider Podiatrist Foot & Ankle Surgery
PROC: (CPT 28755; principal; 2025-01-11 07:00)
PROC: (CPT 27691; 2025-01-11 07:00)
DX: M20.12 Hallux valgus (acquired), left foot (principal); E11.621 Type 2 diabetes mellitus with foot ulcer; E11.40 Type 2 diabetes mellitus with diabetic neuropathy, unspecified; L97.522 Non-pressure chronic ulcer of other part of left foot with fat layer exposed; M24.575 Contracture, left foot; I10 Essential (primary) hypertension; K21.9 Gastro-esophageal reflux disease without esophagitis; Z79.899 Other long term (current) drug therapy; Z86.73 Personal history of transient ischemic attack (TIA), and cerebral infarction without residual deficits; Z79.84 Long term (current) use of oral hypoglycemic drugs; Z79.4 Long term (current) use of insulin; Z88.5 Allergy status to narcotic agent; Z88.8 Allergy status to other drugs, medicaments and biological substances; Z79.82 Long term (current) use of aspirin
CPT/HCPCS: 27691; 28755; 36416; 73620; 76000; 82962; C1713; J0690; J2371; J2704; J3010; J3490; J7030; J9999

== ENCOUNTER → 2025-01-24 14:24 | Outpatient (BNVA) | payer OTHER, SELFPAY | PROVIDERS: PCP Nurse Practitioner; Visit Provider Podiatrist Foot & Ankle Surgery | DX: Z98.890 Other specified postprocedural states (principal); E11.40 Type 2 diabetes mellitus with diabetic neuropathy, unspecified; I73.9 Peripheral vascular disease, unspecified; Z79.4 Long term (current) use of insulin; Z79.84 Long term (current) use of oral hypoglycemic drugs | CPT/HCPCS: 73630; 99024 ==

== ENCOUNTER → 2025-02-21 13:45 | Outpatient (BNVA) | payer OTHER, SELFPAY | PROVIDERS: PCP Nurse Practitioner; Visit Provider Podiatrist Foot & Ankle Surgery | DX: Z98.890 Other specified postprocedural states (principal); E11.40 Type 2 diabetes mellitus with diabetic neuropathy, unspecified; I73.9 Peripheral vascular disease, unspecified | CPT/HCPCS: 73630; 99024 ==

== ENCOUNTER → 2025-03-21 08:50 | Outpatient (BNVA) | payer OTHER, SELFPAY | PROVIDERS: PCP Nurse Practitioner; Visit Provider Podiatrist Foot & Ankle Surgery | DX: Z98.890 Other specified postprocedural states (principal); E11.40 Type 2 diabetes mellitus with diabetic neuropathy, unspecified; I73.9 Peripheral vascular disease, unspecified | CPT/HCPCS: 73630; 99024 ==

== ENCOUNTER → 2025-04-01 10:08 | Outpatient (BNVA) | payer OTHER, SELFPAY | PROVIDERS: PCP Nurse Practitioner; Visit Provider Internal Medicine | DX: E11.40 Type 2 diabetes mellitus with diabetic neuropathy, unspecified (principal); R68.89 Other general symptoms and signs; E11.69 Type 2 diabetes mellitus with other specified complication; E78.2 Mixed hyperlipidemia | CPT/HCPCS: 99214 ==

== ENCOUNTER → 2025-06-25 08:40 | Outpatient (BNVA) | payer OTHER, SELFPAY | PROVIDERS: PCP Nurse Practitioner; Visit Provider Podiatrist Foot & Ankle Surgery | DX: E11.8 Type 2 diabetes mellitus with unspecified complications (principal); E11.40 Type 2 diabetes mellitus with diabetic neuropathy, unspecified; I73.9 Peripheral vascular disease, unspecified; Z79.84 Long term (current) use of oral hypoglycemic drugs; Z79.4 Long term (current) use of insulin | CPT/HCPCS: 99213 ==